=== PATIENT | female | born 1950 | race Caucasian/White ===

== ENCOUNTER 2021-12-22 14:57 | Inpatient (IN) | payer MEDICARE, SELFPAY ==
[2021-12-22 16:00] VITALS: BP 119/82; PULSE 101; RESP 18; TEMP 36.3; O2SAT 99
--- NOTE | 2021-12-22 18:26 | PC.ADMIT ---
pt is a 71 y/o female admitted to the unit from [facility] w/ DSM 5 diagnosis of F25 other specified schizophrenia spectrum and other psychotic d/o, F60 paranoid personality d/o. Patient reports 1 psychiatric admission in the past w/ECT treatment. Pt arrived to unit by stretcher. Patient is alert and oriented x4 and signed a CV. pt has past medical history of GERD, arthritis, diverticulitis, HTN. per pt, she had presented to her c appt and then referred to [facility] ED right after. pt states I was feeling really sad and just wanted to end it all. I wasn't planning on killing myself. patient's vital signs upon admission T97.3, HR101, Bp 119/82, RR18, O2 sat99% room air. Patient is ambulatory, verbal. pt has lacerations to bilateral arm (pt reports left arm laceration was due to an accident she endured while cutting a zip-tie).
[2021-12-22 19:12] VITALS: BMI 29.9
[2021-12-22 21:45] VITALS: BP 138/63; PULSE 100; RESP 18; TEMP 36.6; O2SAT 97
[2021-12-22] MEDS: Acetaminophen 325 MG TABLET 650 MG PO (22:48)
[2021-12-22] MEDS: traZODone HCL 50 MG TABLET PO ×2 (22:49→23:53)
[2021-12-22] MEDS: hydrOXYzine HCL 25 MG TABLET PO (22:50)
[2021-12-23 07:20] VITALS: BP 124/78; PULSE 98; RESP 18; TEMP 36.4; O2SAT 96
[2021-12-23 08:04] LABS: Estimated Average Glucose 120 mg/dL; Hemoglobin A1c % 5.8 %
[2021-12-23 08:09] LABS: Alanine Aminotransferase 17 U/L (0-31); Albumin Level 4.1 g/dL (3.5-5.0); Alkaline Phosphatase 78 U/L (39-117); Anion Gap 12 (12-20); Aspartate Amino Transferase 22 U/L (5-31); Bilirubin Total 0.7 mg/dL (0.0-1.0); Blood Urea Nitrogen 16 mg/dL (9-16); Calcium 9.5 mg/dL (8.4-10.2); Carbon Dioxide 32 mmol/L (22-29); Chloride 101 mmol/L (96-108); Cholesterol 201 mg/dL; Creatinine Clr Calc Pharmacy 64.1; Estimated Glomerular Filt Rate > 60; Glucose Fasting 102 mg/dL (60-99); HDL Cholesterol 45 mg/dL; LDL Cholesterol Calculated 124 mg/dl; Potassium 3.3 mmol/L (3.3-5.1); Sodium 142 mmol/L (135-145); Total Protein 7.2 g/dL (6.5-8.0); Triglycerides 163 mg/dL
[2021-12-23 08:29] LABS: Thyroid Stimulating Hormone 0.43 uIU/mL (0.32-4.0)
[2021-12-23 08:48] LABS: Folate 9.1 ng/mL (> or = 4.0); Vitamin B12 217 pg/mL (200-900)
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
[2021-12-23] MEDS: Omeprazole 20 MG CAPSULE.DR PO (14:15)
[2021-12-23] MEDS: Loperamide HCl 2 MG CAPSULE PO (14:15)
--- NOTE | 2021-12-23 16:04 | HO.PM.IMCN ---
History of Present Illness Data of Consult Service Date: 12/23/21 Primary Care Provider: Alvin Lee MD HPI Reason for consult: medical evaluation 71 year female with HTN, Major depression who is presently admitted to inpatient Psych unit for suicide attempt. She reportedly was at PCP's parking lot and cut her wrist and was brought in under section 12. She reports no acute medical issues at this time. She has no chest pain, no dyspnea with exertion, no leg edema Review of Systems Review of Systems: Gen: no fever Resp: no sob, no cough CV: no chest, no BALDERAS, no leg edema GI: No n/v, no abd pain Neuro: No confusion Yes all other systems are reviewed and are negative [facility] Medical History (Updated 12/23/21 @ 16:33 by Brandan Johnson MD) Diverticular disease HTN (hypertension) MDD (major depressive disorder), recurrent episode, moderate Family History (Updated 12/23/21 @ 16:32 by Brandan Johnson MD) Father CAD (coronary artery disease) Mother Alzheimer disease Social History Household Members: None Housing: Apartment Do you presently have visiting nurse or other home services: No Patient Tobacco Use Status: Former Tobacco user Smoked in Last 30 Days: No e-Cigarette/Vaping Use: Never Used Patient Interested in Nicotine Replacement: No (former smoker. 40 years ago) Patient Given Instructions on How to Stop Smoking: No (former smoker. 40 years ago) Second Hand Smoke Exposure: No Use of substances other than those prescribed or required for medical reasons: No Currently Displaying Signs/Symptoms of Drug Intoxication Withdrawal: No Have you been hit, kicked, punched, or otherwise hurt by someone within the past year? If so, by whom?: No Do you feel safe in your current relationship?: No Current Relationship Is there a partner from a previous relationship who is making you feel unsafe now?: No Are you made to feel afraid or neglected: No Spiritual Healthcare Practices: no Advance Directives: No Advance Directives Information Provided: No Do you have thoughts of harming others: None Do you have a plan to hurt others: No Plan Recently lost weight without trying: No Eating poorly because of decreased appetite: No Nutrition Risks: No Nutritional Risk Patient : No : No Poor oral hygiene: No service: No Sexual orientation: Straight/Heterosexual Meds Allergies Allergy/AdvReac Type Severity Reaction Status Date / Time codeine Allergy Unknown Unknown Verified 12/22/21 15:45 fentanyl Allergy Unknown Unknown Verified 12/22/21 15:45 prochlorperazine Allergy Unknown Unknown Verified 12/22/21 15:45 [From Compazine] Sulfa (Sulfonamide Allergy Unknown Unknown Verified 12/22/21 15:45 Antibiotics) ziprasidone [From Geodon] Allergy Unknown Unknown Verified 12/22/21 15:45 Active Medications: Current Medications Acetaminophen (Acetaminophen 325 Mg Tablet) 650 mg PO Q6H PRN PRN Reason: Headache/Pain Mild Scale (1-3) Last Admin: 12/22/21 22:48 Dose: 650 mg Documented by: Al Hydroxide/Mg Hydroxide (Magnesium Hydrox/Alum Hydrox 30 Ml Oral.Susp) 30 ml PO Q6H PRN PRN Reason: Heartburn/Nausea Hydroxyzine HCl (Hydroxyzine Hcl 25 Mg Tablet) 25 mg PO BEDTIME PRN PRN Reason: Anxiety Last Admin: 12/22/21 22:50 Dose: 25 mg Documented by: Loperamide HCl (Loperamide Hcl 2 Mg Capsule) 2 mg PO Q4H PRN PRN Reason: Loose Stool Last Admin: 12/23/21 14:15 Dose: 2 mg Documented by: Magnesium Hydroxide (Milk Of Magnesia 30 Ml Oral.Susp) 30 ml PO DAILY PRN PRN Reason: Constipation Omeprazole (Omeprazole 20 Mg Capsule.Dr) 20 mg PO DAILY@0630 [facility]IX Last Admin: 12/23/21 14:15 Dose: 20 mg Documented by: Quetiapine Fumarate (Quetiapine Fumarate 300 Mg Tablet) 300 mg PO BEDTIME [facility] Trazodone HCl (Trazodone Hcl 50 Mg Tablet) 50 mg PO BEDTIME PRN PRN Reason: Insomnia Last Admin: 12/22/21 23:53 Dose: 50 mg Documented by: Home Medications Medication Instructions Recorded Confirmed Last Taken Type Prilosec 12/23/21 Unknown History chlorthalidone 25 mg tablet 25 mg PO DAILY 12/23/21 Unknown History clonazepam 0.5 mg tablet (Klonopin) 0.5 mg PO DAILY 12/23/21 Unknown History gabapentin 600 mg tablet 600 mg PO BEDTIME 12/23/21 Unknown History metoprolol succinate 12/23/21 Unknown History quetiapine 300 mg tablet (Seroquel) 300 mg PO DAILY 12/23/21 Unknown History tranylcypromine 10 mg tablet 10 mg PO TID 12/23/21 Unknown History (Luis) Physical Exam Vital Signs and Narrative: Vital Signs: Last Vital Signs Temp 97.6 F 12/23/21 07:20 Pulse 98 12/23/21 07:20 Resp 18 12/23/21 07:20 BP 124/78 12/23/21 07:20 Pulse Ox 96 12/23/21 07:20 BMI result Body Mass Index 29.9 Const: Other: Constitutional: Alert, in no distress, Mental Status: Oriented to person, place and time. Eyes: Pupils are equal, round and reactive to light. Ear, Nose and Throat: Oropharynx clear, mucous membranes moist. Ears and nose without eformities. Trachea midline. Respiratory: Clear to auscultation. No wheezing, rales or rhonchi. Cardiovascular: S1 S2 regular. No murmurs, rubs or gallops. Gastrointestinal: Abdomen soft, non-tender, non-distended. Normal bowel sounds.? Neurologic: Cranial nerves II-XII grossly intact. No focal neurological deficits. Moves all extremities spontaneously.? Skin: No rashes or lesions.? Musculoskeletal: No cyanosis or clubbing. Psychiatric: Normal mood and affect? Results Labs CBC and Chem 7: 12/23/21 07:36 Labs: Laboratory Results - last 24 hr 12/23/21 12/23/21 12/23/21 07:36 07:36 07:36 Anion Gap 12 Estim Creat Clear Calc 64.1 Estimated GFR > 60 Fasting Glucose 102 H Estimat Average Glucose 120 Hemoglobin A1c % 5.8 Calcium 9.5 Total Bilirubin 0.7 AST 22 ALT 17 Alkaline Phosphatase 78 Total Protein 7.2 Albumin 4.1 Triglycerides 163 Cholesterol 201 LDL Cholesterol, Calc 124 HDL Cholesterol 45 Vitamin B12 217 Folate 9.1 TSH 0.43 Assessment and Plan (1) HTN (hypertension): Status: Acute Plan 71/F with HTN, major depression here with sucide gesture, cutting wrist. MDD--continue presently psychiatric care HTN--She's supposed to be on metoprolol and Chlorthalidone, med rec not done. BP has been normal so I suggest watching. Please ask Pharmacy to complete med rec Some abdominal discomfort--she states that this has been ongoing for weeks and had work up with abdominal CT at [facility] and told to have diverticular disease, has no fever and no tenderness and if c/o pain, consider repeating CT If ECT is indicated, would suggest getting ECG routinely then proceed unless ECG grossly abnormal.
[2021-12-23] MEDS: Acetaminophen 325 MG TABLET 650 MG PO (16:30)
[2021-12-23] MEDS: Loperamide HCl 2 MG CAPSULE 4 MG PO (16:59)
[2021-12-23 18:00] VITALS: BP 144/65; PULSE 106; RESP 16; TEMP 36.2; O2SAT 98
[2021-12-23] MEDS: traZODone HCL 50 MG TABLET PO (22:11)
[2021-12-23] MEDS: Gabapentin 600 MG TABLET PO (22:33)
[2021-12-23] MEDS: QUEtiapine Fumarate 300 MG TABLET PO (22:34)
[2021-12-23] MEDS: Zolpidem Tartrate 5 MG TABLET PO (22:55)
--- NOTE | 2021-12-24 00:46 | PC.NURSE ---
pt has c/o of insomnia despite gabapentin,seroquel and trazadone administration. dr gutiérrez contacted about pts insomnia will give ambien 5 mg po x1.
[2021-12-24 06:00] VITALS: BP 113/52; PULSE 98; TEMP 36.4; O2SAT 97
--- NOTE | 2021-12-24 08:56 | P.PNPSI_ITS ---
Subjective Subjective Date of Service: 12/24/21 Reason For Visit: psychosis Subjective Notes: Conditional Voluntary Interim History: The nursing staff reported the patient has a poor night, she could not sleep very well with all the medications that she has such as Gamma painting, Seroquel and others. Last night we added Ambien 5 mg p.o. q.h.s. with limited impr ovement. She stated that Klonopin used to help her. We review her list of medications and at this moment she is not on an antidepressant. She tried to kill herself a few days ago we discussed risks and benefits and she agreed to start Remeron as an antidepressant and a medication for sleep. Mental Status Exam Mental Status Exam Patient Appearance: Appropriate Patient Orientation: Person Level of Consciousness: Awake Patient Behavior: Cooperative Mood Description: Withdrawn Affect Description: Constricted Ability to Follow Directions: Fair Speech Pattern: Clear Hallucinations: None Thought Process: Distracted Thought Content: positive for Circumstantial and positive for Poverty of Content Judgement: Fair Diagnostics Vital Signs (24Hr): Vital Signs - 24 hr 12/23/21 18:00 Temperature 97.1 F Pulse Rate 106 H Respiratory Rate 16 Blood Pressure 144/65 H Pulse Oximetry 98 BMI result Body Mass Index 29.9 Labs Results: 12/23/21 07:36 Labs: Laboratory Results - last 48 hr 12/23/21 12/23/21 12/23/21 07:36 07:36 07:36 Sodium 142 Potassium 3.3 Chloride 101 Carbon Dioxide 32 H Anion Gap 12 BUN 16 Creatinine 0.77 Estim Creat Clear Calc 64.1 Estimated GFR > 60 Fasting Glucose 102 H Estimat Average Glucose 120 Hemoglobin A1c % 5.8 Calcium 9.5 Total Bilirubin 0.7 AST 22 ALT 17 Alkaline Phosphatase 78 Total Protein 7.2 Albumin 4.1 Triglycerides 163 Cholesterol 201 LDL Cholesterol, Calc 124 HDL Cholesterol 45 Vitamin B12 217 Folate 9.1 TSH 0.43 Medications Medications Current Medications Acetaminophen (Acetaminophen 325 Mg Tablet) 650 mg PO Q6H PRN PRN Reason: Headache/Pain Mild Scale (1-3) Last Admin: 12/23/21 16:30 Dose: 650 mg Documented by: Al Hydroxide/Mg Hydroxide (Magnesium Hydrox/Alum Hydrox 30 Ml Oral.Susp) 30 ml PO Q6H PRN PRN Reason: Heartburn/Nausea Gabapentin (Gabapentin 600 Mg Tablet) 600 mg PO BEDTIME [facility] Last Admin: 12/23/21 22:33 Dose: 600 mg Documented by: Hydroxyzine HCl (Hydroxyzine Hcl 25 Mg Tablet) 25 mg PO BEDTIME PRN PRN Reason: Anxiety Last Admin: 12/22/21 22:50 Dose: 25 mg Documented by: Loperamide HCl (Loperamide Hcl 2 Mg Capsule) 4 mg PO Q4H PRN PRN Reason: Diarrhea Last Admin: 12/23/21 16:59 Dose: 4 mg Documented by: Magnesium Hydroxide (Milk Of Magnesia 30 Ml Oral.Susp) 30 ml PO DAILY PRN PRN Reason: Constipation Mirtazapine (Mirtazapine 15 Mg Tablet) 15 mg PO BEDTIME [facility] Omeprazole (Omeprazole 20 Mg Capsule.Dr) 20 mg PO DAILY@0630 FELIX Last Admin: 12/23/21 14:15 Dose: 20 mg Documented by: Quetiapine Fumarate (Quetiapine Fumarate 300 Mg Tablet) 300 mg PO BEDTIME [facility] Last Admin: 12/23/21 22:34 Dose: 300 mg Documented by: Trazodone HCl (Trazodone Hcl 50 Mg Tablet) 50 mg PO BEDTIME PRN PRN Reason: Insomnia Last Admin: 12/23/21 22:11 Dose: 50 mg Documented by: Allergies Allergies Allergy/AdvReac Type Severity Reaction Status Date / Time codeine Allergy Unknown Unknown Verified 12/22/21 15:45 fentanyl Allergy Unknown Unknown Verified 12/22/21 15:45 prochlorperazine Allergy Unknown Unknown Verified 12/22/21 15:45 [From Compazine] Sulfa (Sulfonamide Allergy Unknown Unknown Verified 12/22/21 15:45 Antibiotics) ziprasidone [From Geodon] Allergy Unknown Unknown Verified 12/22/21 15:45 Assessment & Plan Assessment & Plan (1) HTN (hypertension): Status: Acute Code(s): I10 - Essential (primary) hypertension Plan 71/F with HTN, major depression here with sucide gesture, cutting wrist. MDD--continue presently psychiatric care HTN--She's supposed to be on metoprolol and Chlorthalidone, med rec not done. BP has been normal so I suggest watching. Please ask Pharmacy to complete med rec Some abdominal discomfort--she states that this has been ongoing for weeks and had work up with abdominal CT at [facility] and told to have diverticular disease, has no fever and no tenderness and if c/o pain, consider repeating CT If ECT is indicated, would suggest getting ECG routinely then proceed unless ECG grossly abnormal. I spent ___20___ minutes with the patient and/or on the patient floor today, greater than?50% of which was spent counseling/coordinating care. Reason for contiued inpatient stay Substantial Risk for: inability to function, rapid decompensation and med/psych decompensation
[2021-12-24 20:12] VITALS: BP 120/84; PULSE 103; RESP 18; TEMP 36.4; O2SAT 98
[2021-12-24] MEDS: Gabapentin 600 MG TABLET PO (20:20)
[2021-12-24] MEDS: Mirtazapine 15 MG TABLET PO (20:20)
[2021-12-24] MEDS: QUEtiapine Fumarate 300 MG TABLET PO (20:20)
[2021-12-24] MEDS: hydrOXYzine HCL 25 MG TABLET PO (20:44)
[2021-12-24] MEDS: traZODone HCL 50 MG TABLET PO ×2 (20:44→21:59)
[2021-12-25] MEDS: Acetaminophen 325 MG TABLET 650 MG PO (05:49)
[2021-12-25] MEDS: Omeprazole 20 MG CAPSULE.DR PO (05:50)
[2021-12-25 06:00] VITALS: BP 135/63; PULSE 106; TEMP 36.5; O2SAT 96
--- NOTE | 2021-12-25 09:28 | HO.PSYCHPN ---
Subjective Subjective Date of Service: 12/25/21 Reason For Visit: psychosis Subjective Notes: Conditional Voluntary Interim History: The nursing staff reported the patient has been isolative, spending most of her time in her room. She needed p.r.n. trazodone for sleep. She denies over-sedation with the new dose of Remeron at night. On interview, the patient stated that she was suicidal ideation and she broke a toothbrush and tried to cut her wrist. She was placed on 1:1 for safety. Mental Status Exam Mental Status Exam Patient Appearance: Well Grooomed Patient Orientation: Person Level of Consciousness: Awake Patient Behavior: Cooperative Mood Description: Depressed Affect Description: Constricted Ability to Follow Directions: Good Speech Pattern: Clear Memory Description: Intact Hallucinations: None Thought Process: Evasive Thought Content: positive for [place] Judgement: Fair Diagnostics Vital Signs (24Hr): Vital Signs - 24 hr 12/24/21 20:12 Temperature 97.6 F Pulse Rate 103 H Respiratory Rate 18 Blood Pressure 120/84 Pulse Oximetry 98 BMI result Body Mass Index 29.9 Labs Results: 12/23/21 07:36 Medications Medications Current Medications Acetaminophen (Acetaminophen 325 Mg Tablet) 650 mg PO Q6H PRN PRN Reason: Headache/Pain Mild Scale (1-3) Last Admin: 12/25/21 05:49 Dose: 650 mg Documented by: Al Hydroxide/Mg Hydroxide (Magnesium Hydrox/Alum Hydrox 30 Ml Oral.Susp) 30 ml PO Q6H PRN PRN Reason: Heartburn/Nausea Gabapentin (Gabapentin 600 Mg Tablet) 600 mg PO BEDTIME [facility] Last Admin: 12/24/21 20:20 Dose: 600 mg Documented by: Hydroxyzine HCl (Hydroxyzine Hcl 25 Mg Tablet) 25 mg PO BEDTIME PRN PRN Reason: Anxiety Last Admin: 12/24/21 20:44 Dose: 25 mg Documented by: Loperamide HCl (Loperamide Hcl 2 Mg Capsule) 4 mg PO Q4H PRN PRN Reason: Diarrhea Last Admin: 12/23/21 16:59 Dose: 4 mg Documented by: Magnesium Hydroxide (Milk Of Magnesia 30 Ml Oral.Susp) 30 ml PO DAILY PRN PRN Reason: Constipation Mirtazapine (Mirtazapine 15 Mg Tablet) 15 mg PO BEDTIME [facility] Last Admin: 12/24/21 20:20 Dose: 15 mg Documented by: Omeprazole (Omeprazole 20 Mg Capsule.) 20 mg PO DAILY@0630 [facility] Last Admin: 12/25/21 05:50 Dose: 20 mg Documented by: Quetiapine Fumarate (Quetiapine Fumarate 300 Mg Tablet) 300 mg PO BEDTIME [facility] Last Admin: 12/24/21 20:20 Dose: 300 mg Documented by: Trazodone HCl (Trazodone Hcl 50 Mg Tablet) 50 mg PO BEDTIME PRN PRN Reason: Insomnia Last Admin: 12/24/21 21:59 Dose: 50 mg Documented by: Allergies Allergies Allergy/AdvReac Type Severity Reaction Status Date / Time codeine Allergy Unknown Unknown Verified 12/22/21 15:45 fentanyl Allergy Unknown Unknown Verified 12/22/21 15:45 prochlorperazine Allergy Unknown Unknown Verified 12/22/21 15:45 [From Compazine] Sulfa (Sulfonamide Allergy Unknown Unknown Verified 12/22/21 15:45 Antibiotics) ziprasidone [From Geodon] Allergy Unknown Unknown Verified 12/22/21 15:45 Assessment & Plan Assessment & Plan (1) HTN (hypertension): Status: Acute Code(s): I10 - Essential (primary) hypertension Plan 71/F with HTN, major depression here with sucide gesture, cutting wrist. MDD--continue presently psychiatric care HTN--She's supposed to be on metoprolol and Chlorthalidone, med rec not done. BP has been normal so I suggest watching. Please ask Pharmacy to complete med rec Some abdominal discomfort--she states that this has been ongoing for weeks and had work up with abdominal CT at [facility] and told to have diverticular disease, has no fever and no tenderness and if c/o pain, consider repeating CT If ECT is indicated, would suggest getting ECG routinely then proceed unless ECG grossly abnormal. PLAN 1. Increase Remeron up to 30 mg po qhs to target insomnia and depression. 2. 1:1 for safety after suicide gesture. 3. Gather collateral information. I spent ___20___ minutes with the patient and/or on the patient floor today, greater than?50% of which was spent counseling/coordinating care. Reason for contiued inpatient stay Substantial Risk for: inability to function, rapid decompensation and med/psych decompensation
--- NOTE | 2021-12-25 13:33 | PC.NURSE ---
Home Appliance Technician, Perla, called this designer/writer to pt's room stating that pt was bleeding from her wrist. Observed pt to be bleeding from her left wrist from superficial cut. Pt reports she broke a toothbrush and cut my wrist . The MD informed and ordered to pt to be 1:1. The pt contracted for safety at this time, stated It just got to be too much, I just couldn't take it .
[2021-12-25 18:00] VITALS: BP 159/62; PULSE 120; RESP 20; TEMP 36; O2SAT 97
[2021-12-25] MEDS: Loperamide HCl 2 MG CAPSULE 4 MG PO (18:10)
[2021-12-25] MEDS: Mirtazapine 30 MG TABLET PO (20:32)
[2021-12-25] MEDS: Gabapentin 600 MG TABLET PO (20:32)
[2021-12-25] MEDS: QUEtiapine Fumarate 300 MG TABLET PO (20:32)
[2021-12-25] MEDS: Metoprolol Tartrate 50 MG TABLET PO (21:56)
[2021-12-25] MEDS: traZODone HCL 50 MG TABLET PO (21:59)
[2021-12-25 22:02] VITALS: BP 152/62; PULSE 118
[2021-12-26] MEDS: traZODone HCL 50 MG TABLET PO (00:48)
[2021-12-26] MEDS: hydrOXYzine HCL 25 MG TABLET PO (00:48)
--- NOTE | 2021-12-26 05:32 | PC.NURSE ---
Patient took a shower. Left wrist dressing changed to cover one inch horizontal cuts. No bleeding and radial pulse normal on palpation.
[2021-12-26 06:15] VITALS: PULSE 82
[2021-12-26 09:16] VITALS: BP 115/53; PULSE 95; RESP 16; TEMP 36.3; O2SAT 95
[2021-12-26] MEDS: Metoprolol Tartrate 50 MG TABLET PO (09:42)
[2021-12-26 12:35] VITALS: BP 127/62; PULSE 88; RESP 16; O2SAT 95
[2021-12-26 12:41] VITALS: BP 125/61; PULSE 86; RESP 16; TEMP 36.4; O2SAT 97
[2021-12-26 12:45] VITALS: BP 131/59; PULSE 96; RESP 17; O2SAT 94
--- NOTE | 2021-12-26 13:46 | P.PNPSI_ITS ---
Subjective Subjective Date of Service: 12/26/21 Reason For Visit: psychosis Subjective Notes: Conditional Voluntary Interim History: Pt continues on 1:1 for safety. Pt reports it was impulsive act- the one of breaking tooth brush and cut wrist superficially. She is laughing as she tells this fiction writer what happened. Pt denies suicidal ideation. She reports it was s tupid which she said when we first met about cut on wrist that brought her to hospital. Pt reports I just want to be here for as long as I need to, I tell you when I am ready. Pt reports that maybe she was paranoid- but pt has not appear internally preoccupied. When asked about reaction that she was expecting from others after self harm, pt states I wasn't thinking about that. Pt reports sleeping and eating well. She denied SI/HI. Medication Compliance: Yes Side effects from medications: No Review of Systems Review of Systems Gen: no fever Resp: no sob, no cough CV: no chest, no BALDERAS, no leg edema GI: No n/v, no abd pain Neuro: No confusion Yes all other systems are reviewed and are negative Constitutional: Denies weight gain and Denies weight loss Cardiovascular: Denies irregular heart rhythm and Denies dyspnea Respiratory: Denies dyspnea Gastrointestinal: Reports dyspepsia and Reports diarrhea Mental Status Exam Mental Status Exam Narrative: Appearance: casually groomed, fair hygiene in NAD Behavior:cooperative psychomotor:no agitation or retardation noted Speech:clear, normal rate/rhythm/volume, spontaneous Thought process:tangential Thought content:no signs of psychosis, feeling lonely, overwhelmed Mood: overwhelmed Affect: congruent, anxious SI:none HI:none VH/AH:none Delusions:no overt delusional content reported Insight/judgment:fair x 2. Memory/cog: alert, oriented x 3. grossly intact to conversational testing. Diagnostics Vital Signs (24Hr): Vital Signs - 24 hr 12/25/21 18:00 12/25/21 22:02 12/26/21 06:15 Temperature 96.8 F Pulse Rate 120 H 118 H 82 Respiratory Rate 20 Blood Pressure 159/62 H 152/62 H Pulse Oximetry 97 12/26/21 09:16 12/26/21 12:35 12/26/21 12:41 Temperature 97.3 F 97.5 F Pulse Rate 95 88 86 Respiratory Rate 16 16 16 Blood Pressure 115/53 L 127/62 125/61 Pulse Oximetry 95 95 97 12/26/21 12:45 Temperature Pulse Rate 96 Respiratory Rate 17 Blood Pressure 131/59 L Pulse Oximetry 94 BMI result Body Mass Index 29.9 Labs Results: 12/23/21 07:36 Medications Medications Current Medications Acetaminophen (Acetaminophen 325 Mg Tablet) 650 mg PO Q6H PRN PRN Reason: Headache/Pain Mild Scale (1-3) Last Admin: 12/25/21 05:49 Dose: 650 mg Documented by: Al Hydroxide/Mg Hydroxide (Magnesium Hydrox/Alum Hydrox 30 Ml Oral.Susp) 30 ml PO Q6H PRN PRN Reason: Heartburn/Nausea Gabapentin (Gabapentin 600 Mg Tablet) 600 mg PO BEDTIME FELIX Last Admin: 12/25/21 20:32 Dose: 600 mg Documented by: Hydroxyzine HCl (Hydroxyzine Hcl 25 Mg Tablet) 25 mg PO BEDTIME PRN PRN Reason: Anxiety Last Admin: 12/26/21 00:48 Dose: 25 mg Documented by: Loperamide HCl (Loperamide Hcl 2 Mg Capsule) 4 mg PO Q4H PRN PRN Reason: Diarrhea Last Admin: 12/25/21 18:10 Dose: 4 mg Documented by: Magnesium Hydroxide (Milk Of Magnesia 30 Ml Oral.Susp) 30 ml PO DAILY PRN PRN Reason: Constipation Metoprolol Tartrate (Metoprolol Tartrate 50 Mg Tablet) 50 mg PO DAILY [facility]; Protocol Last Admin: 12/26/21 09:42 Dose: 50 mg Documented by: Mirtazapine (Mirtazapine 30 Mg Tablet) 30 mg PO BEDTIME [facility] Last Admin: 12/25/21 20:32 Dose: 30 mg Documented by: Omeprazole (Omeprazole 20 Mg Capsule.Dr) 20 mg PO DAILY@0630 [facility] Last Admin: 12/26/21 06:02 Dose: Not Given Documented by: Quetiapine Fumarate (Quetiapine Fumarate 300 Mg Tablet) 300 mg PO BEDTIME [facility] Last Admin: 12/25/21 20:32 Dose: 300 mg Documented by: Trazodone HCl (Trazodone Hcl 50 Mg Tablet) 50 mg PO BEDTIME PRN PRN Reason: Insomnia Last Admin: 12/26/21 00:48 Dose: 50 mg Documented by: Allergies Allergies Allergy/AdvReac Type Severity Reaction Status Date / Time codeine Allergy Unknown Unknown Verified 12/22/21 15:45 fentanyl Allergy Unknown Unknown Verified 12/22/21 15:45 prochlorperazine Allergy Unknown Unknown Verified 12/22/21 15:45 [From Compazine] Sulfa (Sulfonamide Allergy Unknown Unknown Verified 12/22/21 15:45 Antibiotics) ziprasidone [From Geodon] Allergy Unknown Unknown Verified 12/22/21 15:45 Assessment & Plan Assessment & Plan (1) MDD (major depressive disorder), recurrent episode, moderate: Status: Acute Code(s): F33.1 - Major depressive disorder, recurrent, moderate Plan 71/F with HTN, major depression here with sucide gesture, cutting wrist. MDD--continue presently psychiatric care PLAN 1. Increase Remeron up to 30 mg po qhs to target insomnia and depression. 2. 1:1 for safety after suicide gesture- continue for now 3. Gather collateral information. 4. Aftercare planning. I spent ___25___ minutes with the patient and/or on the patient floor today, greater than?50% of which was spent counseling/coordinating care. Patient educated on: diagnosis Informed Consent: understands Reason for contiued inpatient stay Substantial Risk for: harm to self
[2021-12-26 18:00] VITALS: BP 140/69; PULSE 102; RESP 18; TEMP 37; O2SAT 98
[2021-12-26] MEDS: Mirtazapine 30 MG TABLET PO (22:03)
[2021-12-26] MEDS: QUEtiapine Fumarate 300 MG TABLET PO (22:03)
[2021-12-27] MEDS: traZODone HCL 50 MG TABLET PO (00:27)
[2021-12-27] MEDS: hydrOXYzine HCL 25 MG TABLET PO (00:27)
[2021-12-27 07:15] VITALS: BP 158/82; PULSE 115; RESP 20; TEMP 36.3; O2SAT 97
--- NOTE | 2021-12-27 07:40 | P.PNPSI_ITS ---
Subjective Subjective Date of Service: 12/27/21 Reason For Visit: psychosis Subjective Notes: Conditional Voluntary Interim History: Pt continues on 1:1 for safety. Pt initially declined to speak with this casualty underwriter reporting she is overwhelmed and tired. She had asked RN in morning that she wants ECT. She later did agree to talk with this casualty underwriter, stating she had ECT several years ago here and in [place]. Pt denies SI/HI. She reports attempt on unit was stupid but still can't contract for safety. Pt reports several somatic concerns like dizziness, unsteady gait but seen walking with steady gait and no signs of orthostatic hton. Pt states people don't believe how sick I am. Medication Compliance: Yes Side effects from medications: No Attending Groups: No Review of Systems Review of Systems Gen: no fever Resp: no sob, no cough CV: no chest, no BALDERAS, no leg edema GI: No n/v, no abd pain Neuro: No confusion Yes all other systems are reviewed and are negative Constitutional: Denies weight gain and Denies weight loss Cardiovascular: Denies irregular heart rhythm and Denies dyspnea Respiratory: Denies dyspnea Gastrointestinal: Reports dyspepsia and Reports diarrhea Mental Status Exam Mental Status Exam Narrative: Appearance: casually groomed, fair hygiene in NAD Behavior:cooperative psychomotor:no agitation or retardation noted Speech:clear, normal rate/rhythm/volume, spontaneous Thought process:tangential Thought content:no signs of psychosis, feeling lonely, overwhelmed Mood: overwhelmed Affect: congruent, anxious SI:none HI:none VH/AH:none Delusions:no overt delusional content reported Insight/judgment:fair x 2. Memory/cog: alert, oriented x 3. grossly intact to conversational testing. Diagnostics Vital Signs (24Hr): Vital Signs - 24 hr 12/27/21 20:33 Temperature 98.8 F Pulse Rate 98 Respiratory Rate 16 Blood Pressure 132/59 L Pulse Oximetry 97 BMI result Body Mass Index 29.9 Labs Results: 12/23/21 07:36 Medications Medications Current Medications Acetaminophen (Acetaminophen 325 Mg Tablet) 650 mg PO Q6H PRN PRN Reason: Headache/Pain Mild Scale (1-3) Last Admin: 12/25/21 05:49 Dose: 650 mg Documented by: Al Hydroxide/Mg Hydroxide (Magnesium Hydrox/Alum Hydrox 30 Ml Oral.Susp) 30 ml PO Q6H PRN PRN Reason: Heartburn/Nausea Gabapentin (Gabapentin 600 Mg Tablet) 600 mg PO BEDTIME FELIX Last Admin: 12/27/21 20:10 Dose: 600 mg Documented by: Hydroxyzine HCl (Hydroxyzine Hcl 25 Mg Tablet) 25 mg PO BEDTIME PRN PRN Reason: Anxiety Last Admin: 12/27/21 00:27 Dose: 25 mg Documented by: Loperamide HCl (Loperamide Hcl 2 Mg Capsule) 4 mg PO Q4H PRN PRN Reason: Diarrhea Last Admin: 12/25/21 18:10 Dose: 4 mg Documented by: Magnesium Hydroxide (Milk Of Magnesia 30 Ml Oral.Susp) 30 ml PO DAILY PRN PRN Reason: Constipation Metoprolol Tartrate (Metoprolol Tartrate 50 Mg Tablet) 50 mg PO DAILY [facility]; Protocol Last Admin: 12/27/21 09:34 Dose: 50 mg Documented by: Mirtazapine (Mirtazapine 30 Mg Tablet) 30 mg PO BEDTIME [facility] Last Admin: 12/27/21 20:10 Dose: 30 mg Documented by: Omeprazole (Omeprazole 20 Mg Capsule.Dr) 20 mg PO DAILY@0630 [facility] Last Admin: 12/28/21 06:22 Dose: Not Given Documented by: Quetiapine Fumarate (Quetiapine Fumarate 300 Mg Tablet) 300 mg PO BEDTIME [facility] Last Admin: 12/27/21 20:10 Dose: 300 mg Documented by: Trazodone HCl (Trazodone Hcl 50 Mg Tablet) 50 mg PO BEDTIME PRN PRN Reason: Insomnia Last Admin: 12/27/21 00:27 Dose: 50 mg Documented by: Allergies Allergies Allergy/AdvReac Type Severity Reaction Status Date / Time codeine Allergy Unknown Unknown Verified 12/22/21 15:45 fentanyl Allergy Unknown Unknown Verified 12/22/21 15:45 prochlorperazine Allergy Unknown Unknown Verified 12/22/21 15:45 [From Compazine] Sulfa (Sulfonamide Allergy Unknown Unknown Verified 12/22/21 15:45 Antibiotics) ziprasidone [From Geodon] Allergy Unknown Unknown Verified 12/22/21 15:45 Assessment & Plan Assessment & Plan (1) MDD (major depressive disorder), recurrent episode, moderate: Status: Acute Code(s): F33.1 - Major depressive disorder, recurrent, moderate (2) Borderline personality disorder: Status: Acute Code(s): F60.3 - Borderline personality disorder Plan 71/F with HTN, major depression here with sucide gesture, cutting wrist. MDD--continue presently psychiatric care PLAN 1. Increase Remeron up to 30 mg po qhs to target insomnia and depression. 2. 1:1 for safety after suicide gesture- continue for now 3. Gather collateral information. 4. Aftercare planning. I spent minutes with the patient and/or on the patient floor today, greater than?50% of which was spent counseling/coordinating care. Reason for contiued inpatient stay Substantial Risk for: inability to function
[2021-12-27] MEDS: Metoprolol Tartrate 50 MG TABLET PO (09:34)
[2021-12-27] MEDS: QUEtiapine Fumarate 300 MG TABLET PO (20:10)
[2021-12-27] MEDS: Gabapentin 600 MG TABLET PO (20:10)
[2021-12-27] MEDS: Mirtazapine 30 MG TABLET PO (20:10)
[2021-12-27 20:33] VITALS: BP 132/59; PULSE 98; RESP 16; TEMP 37.1; O2SAT 97
[2021-12-28 06:00] VITALS: BP 123/64; PULSE 108; RESP 14; TEMP 36.4; O2SAT 98
[2021-12-28] MEDS: Omeprazole 20 MG CAPSULE.DR PO (08:33)
[2021-12-28] MEDS: Metoprolol Tartrate 50 MG TABLET PO (08:33)
--- NOTE | 2021-12-28 11:01 | P.PNPSI_ITS ---
Subjective Subjective Date of Service: 12/28/21 Reason For Visit: psychosis Subjective Notes: Conditional Voluntary Interim History: Pt continues on 1:1 for safety. Pt met with this advertising writer and MATTHEW Corrales. Pt reports she feels safe in the unit. She reports sleeping and eating well. She denies SI/HI. However, pt reports she does not feel ready to be discharged, that she she will determine when she is ready to leave. We discussed goals for this admission, including safety planning. We discussed that most coping skills to manage frustration, loneliness to prevent self harm are learned from outpatient intensive therapy. Pt reports medications are helpful. She denies side affects. No behavioral concerns. Medication Compliance: Yes Side effects from medications: No Review of Systems Review of Systems Gen: no fever Resp: no sob, no cough CV: no chest, no BALDERAS, no leg edema GI: No n/v, no abd pain Neuro: No confusion Yes all other systems are reviewed and are negative Constitutional: Denies weight gain and Denies weight loss Cardiovascular: Denies irregular heart rhythm and Denies dyspnea Respiratory: Denies dyspnea Gastrointestinal: Reports dyspepsia and Reports diarrhea Mental Status Exam Mental Status Exam Narrative: Appearance: casually groomed, fair hygiene in NAD Behavior:cooperative psychomotor:no agitation or retardation noted Speech:clear, normal rate/rhythm/volume, spontaneous Thought process:tangential Thought content:no signs of psychosis, feeling lonely, overwhelmed Mood: overwhelmed Affect: congruent, anxious SI:none HI:none VH/AH:none Delusions:no overt delusional content reported Insight/judgment:fair x 2. Memory/cog: alert, oriented x 3. grossly intact to conversational testing. Diagnostics Vital Signs (24Hr): Vital Signs - 24 hr 12/27/21 20:33 12/28/21 06:00 Temperature 98.8 F 97.6 F Pulse Rate 98 108 H Respiratory Rate 16 14 Blood Pressure 132/59 L 123/64 Pulse Oximetry 97 98 BMI result Body Mass Index 29.9 Labs Results: 12/23/21 07:36 Medications Medications Current Medications Acetaminophen (Acetaminophen 325 Mg Tablet) 650 mg PO Q6H PRN PRN Reason: Headache/Pain Mild Scale (1-3) Last Admin: 12/25/21 05:49 Dose: 650 mg Documented by: Al Hydroxide/Mg Hydroxide (Magnesium Hydrox/Alum Hydrox 30 Ml Oral.Susp) 30 ml PO Q6H PRN PRN Reason: Heartburn/Nausea Gabapentin (Gabapentin 600 Mg Tablet) 600 mg PO BEDTIME FELIX Last Admin: 12/27/21 20:10 Dose: 600 mg Documented by: Hydroxyzine HCl (Hydroxyzine Hcl 25 Mg Tablet) 25 mg PO BEDTIME PRN PRN Reason: Anxiety Last Admin: 12/27/21 00:27 Dose: 25 mg Documented by: Loperamide HCl (Loperamide Hcl 2 Mg Capsule) 4 mg PO Q4H PRN PRN Reason: Diarrhea Last Admin: 12/25/21 18:10 Dose: 4 mg Documented by: Magnesium Hydroxide (Milk Of Magnesia 30 Ml Oral.Susp) 30 ml PO DAILY PRN PRN Reason: Constipation Metoprolol Tartrate (Metoprolol Tartrate 50 Mg Tablet) 50 mg PO DAILY [facility]; Protocol Last Admin: 12/28/21 08:33 Dose: 50 mg Documented by: Mirtazapine (Mirtazapine 30 Mg Tablet) 30 mg PO BEDTIME [facility] Last Admin: 12/27/21 20:10 Dose: 30 mg Documented by: Omeprazole (Omeprazole 20 Mg Capsule.Dr) 20 mg PO DAILY@0630 [facility] Last Admin: 12/28/21 08:33 Dose: 20 mg Documented by: Quetiapine Fumarate (Quetiapine Fumarate 300 Mg Tablet) 300 mg PO BEDTIME [facility] Last Admin: 12/27/21 20:10 Dose: 300 mg Documented by: Trazodone HCl (Trazodone Hcl 50 Mg Tablet) 50 mg PO BEDTIME PRN PRN Reason: Insomnia Last Admin: 12/27/21 00:27 Dose: 50 mg Documented by: Allergies Allergies Allergy/AdvReac Type Severity Reaction Status Date / Time codeine Allergy Unknown Unknown Verified 12/22/21 15:45 fentanyl Allergy Unknown Unknown Verified 12/22/21 15:45 prochlorperazine Allergy Unknown Unknown Verified 12/22/21 15:45 [From Compazine] Sulfa (Sulfonamide Allergy Unknown Unknown Verified 12/22/21 15:45 Antibiotics) ziprasidone [From Geodon] Allergy Unknown Unknown Verified 12/22/21 15:45 Assessment & Plan Assessment & Plan (1) MDD (major depressive disorder), recurrent episode, moderate: Status: Acute Code(s): F33.1 - Major depressive disorder, recurrent, moderate (2) Borderline personality disorder: Status: Acute Code(s): F60.3 - Borderline personality disorder Plan 71/F with HTN, major depression here with sucide gesture, cutting wrist. MDD--continue presently psychiatric care PLAN 1. Increase Remeron up to 30 mg po qhs to target insomnia and depression. 2. 1:1 for safety after suicide gesture- continue for now 3. Gather collateral information. 4. Aftercare planning. I spent minutes with the patient and/or on the patient floor today, greater than?50% of which was spent counseling/coordinating care. Reason for contiued inpatient stay Substantial Risk for: harm to self
[2021-12-28] MEDS: QUEtiapine Fumarate 300 MG TABLET PO (20:17)
[2021-12-28] MEDS: Mirtazapine 30 MG TABLET PO (20:17)
[2021-12-28] MEDS: Gabapentin 600 MG TABLET PO (20:17)
[2021-12-28 21:12] VITALS: BP 141/62; PULSE 99; RESP 17; TEMP 36.5; O2SAT 97
[2021-12-29 06:00] VITALS: BP 136/57; PULSE 108; RESP 16; TEMP 36.8; O2SAT 98
[2021-12-29] MEDS: Omeprazole 20 MG CAPSULE.DR PO (06:43)
[2021-12-29 07:00] VITALS: BMI 28.5
[2021-12-29] MEDS: Metoprolol Tartrate 50 MG TABLET PO (08:44)
--- NOTE | 2021-12-29 12:30 | HO.PSYCHPN ---
Subjective Subjective Date of Service: 12/29/21 Reason For Visit: psychosis Subjective Notes: Conditional Voluntary Interim History: Pt continues on 1:1 for safety. Pt in room. She reports not feeling well physically in that she reports feeling dizzy when standing- BP wnl, no signs of orthostatic changes. Pt reports she can't go to groups because of this. Pt denies SI/HI, reports sleeping. however, pt declines discussing discharge plans as she states she is not ready and does not know when she will be ready. We discussed that most therapeutic interventions for her are outpatient as she will be able to build on chronic sense of loneliness, fear of rejection or abandonment. hospitalist consult for wound on left wrist that appears purulent ordered Medication Compliance: Yes Side effects from medications: No Review of Systems Review of Systems Gen: no fever Resp: no sob, no cough CV: no chest, no BALDERAS, no leg edema GI: No n/v, no abd pain Neuro: No confusion Yes all other systems are reviewed and are negative Constitutional: Denies weight gain and Denies weight loss Cardiovascular: Denies irregular heart rhythm and Denies dyspnea Respiratory: Denies dyspnea Gastrointestinal: Reports dyspepsia and Reports diarrhea Mental Status Exam Mental Status Exam Narrative: Appearance: casually groomed, fair hygiene in NAD Behavior:cooperative psychomotor:no agitation or retardation noted Speech:clear, normal rate/rhythm/volume, spontaneous Thought process:tangential Thought content:no signs of psychosis, feeling lonely, overwhelmed Mood: overwhelmed Affect: congruent, anxious SI:none HI:none VH/AH:none Delusions:no overt delusional content reported Insight/judgment:fair x 2. Memory/cog: alert, oriented x 3. grossly intact to conversational testing. Patient Appearance: Well Grooomed Patient Orientation: Person Level of Consciousness: Awake Patient Behavior: Cooperative Mood Description: Depressed Affect Description: Constricted Ability to Follow Directions: Good Speech Pattern: Clear Memory Description: Intact Diagnostics Vital Signs (24Hr): Vital Signs - 24 hr 12/28/21 21:12 Temperature 97.7 F Pulse Rate 99 Respiratory Rate 17 Blood Pressure 141/62 H Pulse Oximetry 97 BMI result Body Mass Index 29.9 Labs Results: 12/23/21 07:36 Medications Medications Current Medications Acetaminophen (Acetaminophen 325 Mg Tablet) 650 mg PO Q6H PRN PRN Reason: Headache/Pain Mild Scale (1-3) Last Admin: 12/25/21 05:49 Dose: 650 mg Documented by: Al Hydroxide/Mg Hydroxide (Magnesium Hydrox/Alum Hydrox 30 Ml Oral.Susp) 30 ml PO Q6H PRN PRN Reason: Heartburn/Nausea Gabapentin (Gabapentin 600 Mg Tablet) 600 mg PO BEDTIME FELIX Last Admin: 12/28/21 20:17 Dose: 600 mg Documented by: Hydroxyzine HCl (Hydroxyzine Hcl 25 Mg Tablet) 25 mg PO BEDTIME PRN PRN Reason: Anxiety Last Admin: 12/27/21 00:27 Dose: 25 mg Documented by: Loperamide HCl (Loperamide Hcl 2 Mg Capsule) 4 mg PO Q4H PRN PRN Reason: Diarrhea Last Admin: 12/29/21 13:04 Dose: 4 mg Documented by: Magnesium Hydroxide (Milk Of Magnesia 30 Ml Oral.Susp) 30 ml PO DAILY PRN PRN Reason: Constipation Metoprolol Tartrate (Metoprolol Tartrate 50 Mg Tablet) 50 mg PO DAILY [facility]; Protocol Last Admin: 12/29/21 08:44 Dose: 50 mg Documented by: Mirtazapine (Mirtazapine 30 Mg Tablet) 30 mg PO BEDTIME [facility] Last Admin: 12/28/21 20:17 Dose: 30 mg Documented by: Omeprazole (Omeprazole 20 Mg Capsule.Dr) 20 mg PO DAILY@0630 [facility] Last Admin: 12/29/21 06:43 Dose: 20 mg Documented by: Quetiapine Fumarate (Quetiapine Fumarate 300 Mg Tablet) 300 mg PO BEDTIME [facility] Last Admin: 12/28/21 20:17 Dose: 300 mg Documented by: Trazodone HCl (Trazodone Hcl 50 Mg Tablet) 50 mg PO BEDTIME PRN PRN Reason: Insomnia Last Admin: 12/27/21 00:27 Dose: 50 mg Documented by: Allergies Allergies Allergy/AdvReac Type Severity Reaction Status Date / Time codeine Allergy Unknown Unknown Verified 12/22/21 15:45 fentanyl Allergy Unknown Unknown Verified 12/22/21 15:45 prochlorperazine Allergy Unknown Unknown Verified 12/22/21 15:45 [From Compazine] Sulfa (Sulfonamide Allergy Unknown Unknown Verified 12/22/21 15:45 Antibiotics) ziprasidone [From Geodon] Allergy Unknown Unknown Verified 12/22/21 15:45 Assessment & Plan Assessment & Plan (1) MDD (major depressive disorder), recurrent episode, moderate: Status: Acute Code(s): F33.1 - Major depressive disorder, recurrent, moderate (2) Borderline personality disorder: Status: Acute Code(s): F60.3 - Borderline personality disorder Plan 71/F with HTN, major depression here with sucide gesture, cutting wrist. MDD--continue presently psychiatric care PLAN 1. Increase Remeron up to 30 mg po qhs to target insomnia and depression. 2. 1:1 for safety after suicide gesture- continue for now 3. Gather collateral information. 4. Aftercare planning. 12/29- no med changes. I spent minutes with the patient and/or on the patient floor today, greater than?50% of which was spent counseling/coordinating care. Reason for contiued inpatient stay Substantial Risk for: harm to self
[2021-12-29] MEDS: Loperamide HCl 2 MG CAPSULE 4 MG PO (13:04)
[2021-12-29] MEDS: QUEtiapine Fumarate 300 MG TABLET PO (20:40)
[2021-12-29] MEDS: Gabapentin 600 MG TABLET PO (20:40)
[2021-12-29] MEDS: Mirtazapine 30 MG TABLET PO (20:40)
[2021-12-29 21:07] VITALS: BP 138/74; PULSE 96; RESP 17; TEMP 36.6; O2SAT 100
[2021-12-30] MEDS: Omeprazole 20 MG CAPSULE.DR PO (06:38)
[2021-12-30 08:00] VITALS: BP 140/59; PULSE 104; RESP 15; TEMP 36.6; O2SAT 98
[2021-12-30] MEDS: Metoprolol Tartrate 50 MG TABLET PO (08:21)
[2021-12-30] MEDS: hydrOXYzine HCL 25 MG TABLET PO (08:21)
--- NOTE | 2021-12-30 13:39 | HO.PSYCHPN ---
Subjective Subjective Date of Service: 12/30/21 Reason For Visit: psychosis Subjective Notes: Conditional Voluntary Interim History: Pt continues on 1:1 for safety. Pt reports feeling physically tired and this is affecting her ability to participate in groups. Pt denies SI/HI. She reports she can't talk to this check writer for too long as she is tired. She continues to agree to referrals to OP psych. no meaningful engagement in treatment, I suspect as way to prolonged stay on unit. Medication Compliance: Yes Review of Systems Review of Systems Yes all other systems are reviewed and are negative Constitutional: Denies weight gain and Denies weight loss Cardiovascular: Denies irregular heart rhythm and Denies dyspnea Respiratory: Denies dyspnea Gastrointestinal: Reports dyspepsia and Reports diarrhea Mental Status Exam Mental Status Exam Narrative: Appearance: casually groomed, fair hygiene in NAD Behavior:cooperative psychomotor:no agitation or retardation noted Speech:clear, normal rate/rhythm/volume, spontaneous Thought process:tangential Thought content:no signs of psychosis, feeling lonely, overwhelmed Mood: overwhelmed Affect: congruent, anxious SI:none HI:none VH/AH:none Delusions:no overt delusional content reported Insight/judgment:fair x 2. Memory/cog: alert, oriented x 3. grossly intact to conversational testing. Diagnostics Vital Signs (24Hr): Vital Signs - 24 hr 12/29/21 21:07 12/30/21 08:00 Temperature 97.9 F 98 F Pulse Rate 96 104 H Respiratory Rate 17 15 Blood Pressure 138/74 140/59 H Pulse Oximetry 100 98 BMI result Body Mass Index 28.5 Labs Results: 12/23/21 07:36 Medications Medications Current Medications Acetaminophen (Acetaminophen 325 Mg Tablet) 650 mg PO Q6H PRN PRN Reason: Headache/Pain Mild Scale (1-3) Last Admin: 12/25/21 05:49 Dose: 650 mg Documented by: Al Hydroxide/Mg Hydroxide (Magnesium Hydrox/Alum Hydrox 30 Ml Oral.Susp) 30 ml PO Q6H PRN PRN Reason: Heartburn/Nausea Gabapentin (Gabapentin 600 Mg Tablet) 600 mg PO BEDTIME FELIX Last Admin: 12/29/21 20:40 Dose: 600 mg Documented by: Hydroxyzine HCl (Hydroxyzine Hcl 25 Mg Tablet) 25 mg PO BEDTIME PRN PRN Reason: Anxiety Last Admin: 12/30/21 08:21 Dose: 25 mg Documented by: Loperamide HCl (Loperamide Hcl 2 Mg Capsule) 4 mg PO Q4H PRN PRN Reason: Diarrhea Last Admin: 12/29/21 13:04 Dose: 4 mg Documented by: Magnesium Hydroxide (Milk Of Magnesia 30 Ml Oral.Susp) 30 ml PO DAILY PRN PRN Reason: Constipation Metoprolol Tartrate (Metoprolol Tartrate 50 Mg Tablet) 50 mg PO DAILY [facility]; Protocol Last Admin: 12/30/21 08:21 Dose: 50 mg Documented by: Mirtazapine (Mirtazapine 30 Mg Tablet) 30 mg PO BEDTIME FELIX Last Admin: 12/29/21 20:40 Dose: 30 mg Documented by: Omeprazole (Omeprazole 20 Mg Capsule.Dr) 20 mg PO DAILY@0630 [facility] Last Admin: 12/30/21 06:38 Dose: 20 mg Documented by: Quetiapine Fumarate (Quetiapine Fumarate 300 Mg Tablet) 300 mg PO BEDTIME [facility] Last Admin: 12/29/21 20:40 Dose: 300 mg Documented by: Trazodone HCl (Trazodone Hcl 50 Mg Tablet) 50 mg PO BEDTIME PRN PRN Reason: Insomnia Last Admin: 12/27/21 00:27 Dose: 50 mg Documented by: Allergies Allergies Allergy/AdvReac Type Severity Reaction Status Date / Time codeine Allergy Unknown Unknown Verified 12/22/21 15:45 fentanyl Allergy Unknown Unknown Verified 12/22/21 15:45 prochlorperazine Allergy Unknown Unknown Verified 12/22/21 15:45 [From Compazine] Sulfa (Sulfonamide Allergy Unknown Unknown Verified 12/22/21 15:45 Antibiotics) ziprasidone [From Geodon] Allergy Unknown Unknown Verified 12/22/21 15:45 Assessment & Plan Assessment & Plan (1) MDD (major depressive disorder), recurrent episode, moderate: Status: Acute Code(s): F33.1 - Major depressive disorder, recurrent, moderate (2) Borderline personality disorder: Status: Acute Code(s): F60.3 - Borderline personality disorder Plan continue current medications CV, 1:1 for safety- do think pt may increase self harm to delay discharge, rather than active suicidality. Obtain collateral information. I spent minutes with the patient and/or on the patient floor today, greater than?50% of which was spent counseling/coordinating care. Reason for contiued inpatient stay Substantial Risk for: harm to self
[2021-12-30 18:00] VITALS: BP 137/65; PULSE 96; RESP 17; TEMP 36.4; O2SAT 98
[2021-12-30] MEDS: QUEtiapine Fumarate 300 MG TABLET PO (19:51)
[2021-12-30] MEDS: Mirtazapine 30 MG TABLET PO (19:51)
[2021-12-30] MEDS: Gabapentin 600 MG TABLET PO (19:51)
[2021-12-31] MEDS: Omeprazole 20 MG CAPSULE.DR PO (05:56)
[2021-12-31 06:00] VITALS: BP 136/70; PULSE 102; RESP 16; TEMP 36.7; O2SAT 98
[2021-12-31] MEDS: Metoprolol Tartrate 50 MG TABLET PO (08:27)
--- NOTE | 2021-12-31 12:49 | PM.EVENT ---
Event Note Date of Service: 12/31/21 Event Note: consulted for rt wrist redness patient feels right wrist redness has improved denies fever chills no pain. On examination patient sitting comfortably awake alert in no distress right wrist linear cut healing well with no tenderness, no fluctuation or no drainage assessment and plan right wrist wound healing well with no evidence of acute infection, recommend not to wash the area or apply any Band-Aid .
--- NOTE | 2021-12-31 16:59 | P.PNPSI_ITS ---
Subjective Subjective Date of Service: 12/31/21 Reason For Visit: psychosis Subjective Notes: Conditional Voluntary Interim History: met with patient. Discussed with no thing. On one-to-one observation due to concerns around self-harm. Patient reports frustration at being on one-to-one observation and reports being annoyed with herself that she broken toothbrush and tried to cut her arm. Also acknowledged feeling that her mood was unstable, despite wanting discharge. We did discuss the paradox of wanting discharge and hurting self so remaining on one-to-one recently. reports she is staying in her room because she is frustrated rather than participating groups. Reports that she needs to move away from her family get a car and live in [place]. Had no concrete plans around this. Reports working at [employer] the last 40 years at [employer]. Reports sleep has been okay. Adamantly denies thoughts of self-harm today. No overt psychosis noted Medication Compliance: Yes Side effects from medications: No Attending Groups: No Review of Systems Acute medical concerns: No Review of Systems Review of Systems unremarkable Mental Status Exam Mental Status Exam Narrative: Seen in room. Appropriately dressed. Fair hygiene. There is some difficulty articulating recent circumstances but did appear largely organized. Frustrated. No overt depression noted. Denies SI or self-harm ideas. No HI evident. No psychosis evident. Insight and judgment do appear limited Diagnostics Vital Signs (24Hr): Vital Signs - 24 hr 12/30/21 18:00 12/31/21 06:00 Temperature 97.6 F 98.0 F Pulse Rate 96 102 H Respiratory Rate 17 16 Blood Pressure 137/65 136/70 Pulse Oximetry 98 98 BMI result Body Mass Index 28.5 Labs Results: 12/23/21 07:36 Medications Medications Current Medications Acetaminophen (Acetaminophen 325 Mg Tablet) 650 mg PO Q6H PRN PRN Reason: Headache/Pain Mild Scale (1-3) Last Admin: 12/25/21 05:49 Dose: 650 mg Documented by: Al Hydroxide/Mg Hydroxide (Magnesium Hydrox/Alum Hydrox 30 Ml Oral.Susp) 30 ml PO Q6H PRN PRN Reason: Heartburn/Nausea Gabapentin (Gabapentin 600 Mg Tablet) 600 mg PO BEDTIME FELIX Last Admin: 12/30/21 19:51 Dose: 600 mg Documented by: Hydroxyzine HCl (Hydroxyzine Hcl 25 Mg Tablet) 25 mg PO BEDTIME PRN PRN Reason: Anxiety Last Admin: 12/30/21 08:21 Dose: 25 mg Documented by: Loperamide HCl (Loperamide Hcl 2 Mg Capsule) 4 mg PO Q4H PRN PRN Reason: Diarrhea Last Admin: 12/29/21 13:04 Dose: 4 mg Documented by: Magnesium Hydroxide (Milk Of Magnesia 30 Ml Oral.Susp) 30 ml PO DAILY PRN PRN Reason: Constipation Metoprolol Tartrate (Metoprolol Tartrate 50 Mg Tablet) 50 mg PO DAILY [facility]; Protocol Last Admin: 12/31/21 08:27 Dose: 50 mg Documented by: Mirtazapine (Mirtazapine 30 Mg Tablet) 30 mg PO BEDTIME FELIX Last Admin: 12/30/21 19:51 Dose: 30 mg Documented by: Omeprazole (Omeprazole 20 Mg Capsule.Dr) 20 mg PO DAILY@0630 [facility] Last Admin: 12/31/21 05:56 Dose: 20 mg Documented by: Quetiapine Fumarate (Quetiapine Fumarate 300 Mg Tablet) 300 mg PO BEDTIME FELIX Last Admin: 12/30/21 19:51 Dose: 300 mg Documented by: Trazodone HCl (Trazodone Hcl 50 Mg Tablet) 50 mg PO BEDTIME PRN PRN Reason: Insomnia Last Admin: 12/27/21 00:27 Dose: 50 mg Documented by: Allergies Allergies Allergy/AdvReac Type Severity Reaction Status Date / Time codeine Allergy Unknown Unknown Verified 12/22/21 15:45 fentanyl Allergy Unknown Unknown Verified 12/22/21 15:45 prochlorperazine Allergy Unknown Unknown Verified 12/22/21 15:45 [From Compazine] Sulfa (Sulfonamide Allergy Unknown Unknown Verified 12/22/21 15:45 Antibiotics) ziprasidone [From Geodon] Allergy Unknown Unknown Verified 12/22/21 15:45 Assessment & Plan Assessment & Plan (1) MDD (major depressive disorder), recurrent episode, moderate: Status: Acute Code(s): F33.1 - Major depressive disorder, recurrent, moderate (2) Borderline personality disorder: Status: Acute Code(s): F60.3 - Borderline personality disorder Plan continue current medications CV, 1:1 for safety- do think pt may increase self harm to delay discharge, rather than active suicidality. Obtain collateral information. 12/31/2021: No changes to team's primary treatment plan I spent minutes with the patient and/or on the patient floor today, greater than?50% of which was spent counseling/coordinating care. Reason for contiued inpatient stay Substantial Risk for: harm to self
[2021-12-31 18:00] VITALS: BP 134/58; PULSE 93; RESP 16; TEMP 36.1; O2SAT 95
[2021-12-31] MEDS: Gabapentin 600 MG TABLET PO (21:10)
[2021-12-31] MEDS: QUEtiapine Fumarate 300 MG TABLET PO (21:10)
[2021-12-31] MEDS: Mirtazapine 30 MG TABLET PO (21:10)
[2022-01-01] MEDS: Omeprazole 20 MG CAPSULE.DR PO (05:54)
[2022-01-01 06:00] VITALS: BP 157/63; PULSE 79; RESP 16; TEMP 36.7; O2SAT 97
--- NOTE | 2022-01-01 14:36 | P.PNPSI_ITS ---
Subjective Subjective Date of Service: 01/01/22 Reason For Visit: psychosis Subjective Notes: Conditional Voluntary Interim History: Met with patient. Discussed with nursing. On one-to-one observation due to concerns around self-harm. Still feels her mood can be unstable, despite wanting discharge. Isolating in room- unclear why. Wants to clarify work and if she still has a job. Did clarify she has been at her current job 3 months (not 40 years). Still wants to move away from her family get a car and live in [place]. Reports sleep has been okay. Adamantly denies thoughts of self-harm today. No overt psychosis noted Medication Compliance: Yes Side effects from medications: No Attending Groups: No Review of Systems Acute medical concerns: No Review of Systems Review of Systems unremarkable Mental Status Exam Mental Status Exam Narrative: Seen in room. Appropriately dressed. Fair hygiene. Did appear largely organized. Frustrated. No overt depression noted. Denies SI or self-harm ideas. No HI evident. No psychosis evident. Insight and judgment do appear limited Diagnostics Vital Signs (24Hr): Vital Signs - 24 hr 12/31/21 18:00 01/01/22 06:00 Temperature 97 F 98.0 F Pulse Rate 93 79 Respiratory Rate 16 16 Blood Pressure 134/58 L 157/63 H Pulse Oximetry 95 97 BMI result Body Mass Index 28.5 Labs Results: 12/23/21 07:36 Medications Medications Current Medications Acetaminophen (Acetaminophen 325 Mg Tablet) 650 mg PO Q6H PRN PRN Reason: Headache/Pain Mild Scale (1-3) Last Admin: 12/25/21 05:49 Dose: 650 mg Documented by: Al Hydroxide/Mg Hydroxide (Magnesium Hydrox/Alum Hydrox 30 Ml Oral.Susp) 30 ml PO Q6H PRN PRN Reason: Heartburn/Nausea Gabapentin (Gabapentin 600 Mg Tablet) 600 mg PO BEDTIME FELIX Last Admin: 12/31/21 21:10 Dose: 600 mg Documented by: Hydroxyzine HCl (Hydroxyzine Hcl 25 Mg Tablet) 25 mg PO BEDTIME PRN PRN Reason: Anxiety Last Admin: 12/30/21 08:21 Dose: 25 mg Documented by: Loperamide HCl (Loperamide Hcl 2 Mg Capsule) 4 mg PO Q4H PRN PRN Reason: Diarrhea Last Admin: 12/29/21 13:04 Dose: 4 mg Documented by: Magnesium Hydroxide (Milk Of Magnesia 30 Ml Oral.Susp) 30 ml PO DAILY PRN PRN Reason: Constipation Metoprolol Tartrate (Metoprolol Tartrate 50 Mg Tablet) 50 mg PO DAILY [facility]; Protocol Last Admin: 01/01/22 09:22 Dose: Not Given Documented by: Mirtazapine (Mirtazapine 30 Mg Tablet) 30 mg PO BEDTIME [facility] Last Admin: 12/31/21 21:10 Dose: 30 mg Documented by: Omeprazole (Omeprazole 20 Mg Capsule.Dr) 20 mg PO DAILY@0630 [facility] Last Admin: 01/01/22 05:54 Dose: 20 mg Documented by: Quetiapine Fumarate (Quetiapine Fumarate 300 Mg Tablet) 300 mg PO BEDTIME [facility] Last Admin: 12/31/21 21:10 Dose: 300 mg Documented by: Trazodone HCl (Trazodone Hcl 50 Mg Tablet) 50 mg PO BEDTIME PRN PRN Reason: Insomnia Last Admin: 12/27/21 00:27 Dose: 50 mg Documented by: Allergies Allergies Allergy/AdvReac Type Severity Reaction Status Date / Time codeine Allergy Unknown Unknown Verified 12/22/21 15:45 fentanyl Allergy Unknown Unknown Verified 12/22/21 15:45 prochlorperazine Allergy Unknown Unknown Verified 12/22/21 15:45 [From Compazine] Sulfa (Sulfonamide Allergy Unknown Unknown Verified 12/22/21 15:45 Antibiotics) ziprasidone [From Geodon] Allergy Unknown Unknown Verified 12/22/21 15:45 Assessment & Plan Assessment & Plan (1) MDD (major depressive disorder), recurrent episode, moderate: Status: Acute Code(s): F33.1 - Major depressive disorder, recurrent, moderate (2) Borderline personality disorder: Status: Acute Code(s): F60.3 - Borderline personality disorder Plan continue current medications CV, 1:1 for safety- do think pt may increase self harm to delay discharge, rather than active suicidality. Obtain collateral information. 01/01/2022: No changes to team's primary treatment plan I spent minutes with the patient and/or on the patient floor today, greater than?50% of which was spent counseling/coordinating care. Patient educated on: therapeutic strategies Reason for contiued inpatient stay Substantial Risk for: harm to self
[2022-01-01 18:00] VITALS: BP 143/75; PULSE 99; RESP 18; TEMP 36.1; O2SAT 100
[2022-01-01] MEDS: Gabapentin 600 MG TABLET PO (21:40)
[2022-01-01] MEDS: QUEtiapine Fumarate 300 MG TABLET PO (21:40)
[2022-01-01] MEDS: Mirtazapine 30 MG TABLET PO (21:41)
[2022-01-01] MEDS: hydrOXYzine HCL 25 MG TABLET PO (21:58)
[2022-01-01] MEDS: Zolpidem Tartrate 5 MG TABLET PO (22:27)
--- NOTE | 2022-01-01 22:33 | PC.NURSE ---
pt had c/o of insomnia. contacted dr ruiz in regard to increasing agitation and insomnia. plan 1. 1 dose of ambien 5 mg po. while in the prcocess of procurring ambien. pt became extremely hostile. she jumped out of bed and began attempting to break her eyes glasses to remove lens and ear pieces. pt weeping saying i fucked up repeatedly. pt approached and said that she just cant take it with the sitter. pt will not elaborate on her plan to break glasses and what she had planned with pieces. all belongings removed from room. [address]
--- NOTE | 2022-01-02 04:49 | PC.NURSE ---
pt fell asleep approximately at 0030. she has bee somnolent with snoring noted. pts eye glasses have been secured in white envelope with pts belongings in the med room.
--- NOTE | 2022-01-02 04:55 | PC.NURSE ---
2235-dr ruiz contacted and notified about pts attempt to remove glass lens from glasses. 1:[address] pt laying in bed and other times sitting on the edge of the bed talking about how she messed up.
[2022-01-02 06:00] VITALS: BP 131/64; PULSE 101; RESP 12; TEMP 36.6; O2SAT 98
[2022-01-02] MEDS: Omeprazole 20 MG CAPSULE.DR PO (08:19)
[2022-01-02] MEDS: Metoprolol Tartrate 50 MG TABLET PO (08:19)
--- NOTE | 2022-01-02 13:24 | HO.PSYCHPN ---
Subjective Subjective Date of Service: 01/02/22 Reason For Visit: psychosis Subjective Notes: Conditional Voluntary Interim History: Pt continues on one to one for safety. Pt denies SI/HI. She also reports cutting wrist was not suicide attempt but way to relief emotional distressed. Pt continues to be superficial, not engaging much in meaningful conversation as to goal of being on unit and aftercare planning. Pt declined to talk with clinician today. Medication Compliance: Yes Side effects from medications: No Review of Systems Review of Systems unremarkable Yes all other systems are reviewed and are negative Constitutional: Denies weight gain and Denies weight loss Cardiovascular: Denies irregular heart rhythm and Denies dyspnea Respiratory: Denies dyspnea Gastrointestinal: Reports dyspepsia and Reports diarrhea Mental Status Exam Mental Status Exam Narrative: Seen in room. Appropriately dressed. Fair hygiene. Did appear largely organized. Frustrated. No overt depression noted. Denies SI or self-harm ideas. No HI evident. No psychosis evident. Insight and judgment do appear limited Diagnostics Vital Signs (24Hr): Vital Signs - 24 hr 01/01/22 18:00 01/02/22 06:00 Temperature 96.9 F 97.8 F Pulse Rate 99 101 H Respiratory Rate 18 12 Blood Pressure 143/75 H 131/64 Pulse Oximetry 100 98 BMI result Body Mass Index 28.5 Labs Results: 12/23/21 07:36 Medications Medications Current Medications Acetaminophen (Acetaminophen 325 Mg Tablet) 650 mg PO Q6H PRN PRN Reason: Headache/Pain Mild Scale (1-3) Last Admin: 12/25/21 05:49 Dose: 650 mg Documented by: Al Hydroxide/Mg Hydroxide (Magnesium Hydrox/Alum Hydrox 30 Ml Oral.Susp) 30 ml PO Q6H PRN PRN Reason: Heartburn/Nausea Gabapentin (Gabapentin 600 Mg Tablet) 600 mg PO BEDTIME FELIX Last Admin: 01/01/22 21:40 Dose: 600 mg Documented by: Hydroxyzine HCl (Hydroxyzine Hcl 25 Mg Tablet) 25 mg PO BEDTIME PRN PRN Reason: Anxiety Last Admin: 01/01/22 21:58 Dose: 25 mg Documented by: Loperamide HCl (Loperamide Hcl 2 Mg Capsule) 4 mg PO Q4H PRN PRN Reason: Diarrhea Last Admin: 12/29/21 13:04 Dose: 4 mg Documented by: Magnesium Hydroxide (Milk Of Magnesia 30 Ml Oral.Susp) 30 ml PO DAILY PRN PRN Reason: Constipation Metoprolol Tartrate (Metoprolol Tartrate 50 Mg Tablet) 50 mg PO DAILY [facility]; Protocol Last Admin: 01/02/22 08:19 Dose: 50 mg Documented by: Mirtazapine (Mirtazapine 30 Mg Tablet) 30 mg PO BEDTIME [facility] Last Admin: 01/01/22 21:41 Dose: 30 mg Documented by: Omeprazole (Omeprazole 20 Mg Capsule.Dr) 20 mg PO DAILY@0630 [facility] Last Admin: 01/02/22 08:19 Dose: 20 mg Documented by: Quetiapine Fumarate (Quetiapine Fumarate 300 Mg Tablet) 300 mg PO BEDTIME [facility] Last Admin: 01/01/22 21:40 Dose: 300 mg Documented by: Trazodone HCl (Trazodone Hcl 50 Mg Tablet) 50 mg PO BEDTIME PRN PRN Reason: Insomnia Last Admin: 12/27/21 00:27 Dose: 50 mg Documented by: Zolpidem Tartrate (Zolpidem Tartrate 5 Mg Tablet) 5 mg PO ONCE PRN PRN Reason: Insomnia Last Admin: 01/01/22 22:27 Dose: 5 mg Documented by: Allergies Allergies Allergy/AdvReac Type Severity Reaction Status Date / Time codeine Allergy Unknown Unknown Verified 12/22/21 15:45 fentanyl Allergy Unknown Unknown Verified 12/22/21 15:45 prochlorperazine Allergy Unknown Unknown Verified 12/22/21 15:45 [From Compazine] Sulfa (Sulfonamide Allergy Unknown Unknown Verified 12/22/21 15:45 Antibiotics) ziprasidone [From Geodon] Allergy Unknown Unknown Verified 12/22/21 15:45 Assessment & Plan Assessment & Plan (1) MDD (major depressive disorder), recurrent episode, moderate: Status: Acute Code(s): F33.1 - Major depressive disorder, recurrent, moderate (2) Borderline personality disorder: Status: Acute Code(s): F60.3 - Borderline personality disorder Plan continue current medications CV, 1:1 for safety- do think pt may increase self harm to delay discharge, rather than active suicidality. Obtain collateral information. 01/01/2022: No changes to team's primary treatment plan 01/02- continue current medications. tentative d/c on 01/04/22. may need collateral info from daughter to assess level of risks as pt very superficial and not meaningfully engaging in treatment here on unit. I spent minutes with the patient and/or on the patient floor today, greater than?50% of which was spent counseling/coordinating care. Reason for contiued inpatient stay Substantial Risk for: harm to self
[2022-01-02] MEDS: QUEtiapine Fumarate 300 MG TABLET PO (19:59)
[2022-01-02 20:00] VITALS: BP 131/77; PULSE 106; RESP 18; TEMP 36.1; O2SAT 99
[2022-01-02] MEDS: Gabapentin 600 MG TABLET PO (20:00)
[2022-01-02] MEDS: Mirtazapine 30 MG TABLET PO (20:00)
[2022-01-03] MEDS: traZODone HCL 50 MG TABLET PO (02:19)
[2022-01-03] MEDS: hydrOXYzine HCL 25 MG TABLET PO (02:19)
[2022-01-03 07:30] VITALS: BP 127/68; PULSE 111; RESP 18; O2SAT 96
--- NOTE | 2022-01-03 13:39 | HO.PSYCHPN ---
Subjective Subjective Date of Service: 01/03/22 Reason For Visit: psychosis Subjective Notes: Conditional Voluntary Interim History: Pt continues on one to one for safety. Pt reports she does not remember that we had discussed d/c for tomorrow. She reports she does not want to return to apartment because it's too big. She does not have any other housing arrangements. She denies that she is fearful about returning or that someone may be after her. She simply states it's too big, I don't need all that space. She states that landlord not aware and that she does not plan to call landlord in advanced. Pt denies SI/HI. She reports she needs help with housing, which pt was informed hospital has limited housing resources and all this time she has been here in hospital she has reported she can return there. Pt also reports she is an alcohol, need to go to AA meeting and need a sponsor. Review of Systems Review of Systems unremarkable Yes all other systems are reviewed and are negative Constitutional: Denies weight gain and Denies weight loss Cardiovascular: Denies irregular heart rhythm and Denies dyspnea Respiratory: Denies dyspnea Gastrointestinal: Reports dyspepsia and Reports diarrhea Mental Status Exam Mental Status Exam Narrative: Appearance: casually groomed, fair hygiene in NAD Behavior:cooperative psychomotor:no agitation or retardation noted Speech:clear, normal rate/rhythm/volume, spontaneous Thought process:tangential Thought content:no signs of psychosis, feeling lonely, overwhelmed Mood: overwhelmed Affect: congruent, anxious SI:none HI:none VH/AH:none Delusions:? persecutory Insight/judgment:fair x 2. Memory/cog: alert, oriented x 3. grossly intact to conversational testing. Diagnostics Vital Signs (24Hr): Vital Signs - 24 hr 01/02/22 20:00 01/03/22 07:30 Temperature 97 F Pulse Rate 106 H 111 H Respiratory Rate 18 18 Blood Pressure 131/77 127/68 Pulse Oximetry 99 96 BMI result Body Mass Index 28.5 Labs Results: 12/23/21 07:36 Medications Medications Current Medications Acetaminophen (Acetaminophen 325 Mg Tablet) 650 mg PO Q6H PRN PRN Reason: Headache/Pain Mild Scale (1-3) Last Admin: 12/25/21 05:49 Dose: 650 mg Documented by: Al Hydroxide/Mg Hydroxide (Magnesium Hydrox/Alum Hydrox 30 Ml Oral.Susp) 30 ml PO Q6H PRN PRN Reason: Heartburn/Nausea Gabapentin (Gabapentin 600 Mg Tablet) 600 mg PO BEDTIME FELIX Last Admin: 01/02/22 20:00 Dose: 600 mg Documented by: Hydroxyzine HCl (Hydroxyzine Hcl 25 Mg Tablet) 25 mg PO BEDTIME PRN PRN Reason: Anxiety Last Admin: 01/03/22 02:19 Dose: 25 mg Documented by: Loperamide HCl (Loperamide Hcl 2 Mg Capsule) 4 mg PO Q4H PRN PRN Reason: Diarrhea Last Admin: 12/29/21 13:04 Dose: 4 mg Documented by: Magnesium Hydroxide (Milk Of Magnesia 30 Ml Oral.Susp) 30 ml PO DAILY PRN PRN Reason: Constipation Metoprolol Tartrate (Metoprolol Tartrate 50 Mg Tablet) 50 mg PO DAILY [facility]; Protocol Last Admin: 01/03/22 08:53 Dose: Not Given Documented by: Mirtazapine (Mirtazapine 30 Mg Tablet) 30 mg PO BEDTIME [facility] Last Admin: 01/02/22 20:00 Dose: 30 mg Documented by: Omeprazole (Omeprazole 20 Mg Capsule.Dr) 20 mg PO DAILY@0630 [facility] Last Admin: 01/03/22 08:52 Dose: Not Given Documented by: Quetiapine Fumarate (Quetiapine Fumarate 300 Mg Tablet) 300 mg PO BEDTIME [facility] Last Admin: 01/02/22 19:59 Dose: 300 mg Documented by: Trazodone HCl (Trazodone Hcl 50 Mg Tablet) 50 mg PO BEDTIME PRN PRN Reason: Insomnia Last Admin: 01/03/22 02:19 Dose: 50 mg Documented by: Allergies Allergies Allergy/AdvReac Type Severity Reaction Status Date / Time codeine Allergy Unknown Unknown Verified 12/22/21 15:45 fentanyl Allergy Unknown Unknown Verified 12/22/21 15:45 prochlorperazine Allergy Unknown Unknown Verified 12/22/21 15:45 [From Compazine] Sulfa (Sulfonamide Allergy Unknown Unknown Verified 12/22/21 15:45 Antibiotics) ziprasidone [From Geodon] Allergy Unknown Unknown Verified 12/22/21 15:45 Assessment & Plan Assessment & Plan (1) MDD (major depressive disorder), recurrent episode, moderate: Status: Acute Code(s): F33.1 - Major depressive disorder, recurrent, moderate (2) Borderline personality disorder: Status: Acute Code(s): F60.3 - Borderline personality disorder Plan continue current medications CV, 1:1 for safety- do think pt may increase self harm to delay discharge, rather than active suicidality. Obtain collateral information. 01/01/2022: No changes to team's primary treatment plan 01/02- continue current medications. tentative d/c on 01/04/22. may need collateral info from daughter to assess level of risk as pt very superficial and not meaningfully engaging in treatment here on unit. 01/03- collateral information gathered from PCP Dr. 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 Dr. Lee has noticed persecutory delusions in last 2 years, pt moved from different motels due to persecutory delusions. Pt also with somatic complaints but medical work up did not reveal anything. PCP denies that pt has hx alcohol use disorder- as reported by pt. collateral information from sister Gail ([phone]) who reports in past year she has seen pt more paranoid, thinking someone is after her. She reports pt stayed with her for 2 weeks in 10/2021 and pt appeared paranoid, reporting that someone was in the attic Sister reports she has not seen her as suspicious and paranoia as in past year. Sister denies that pt has alcohol use disorder. Pt agrees to start perphenazine 2mg po TID- target persecutory delusions. I spent __25____ minutes with the patient and/or on the patient floor today, greater than?50% of which was spent counseling/coordinating care. Patient educated on: diagnosis Reason for contiued inpatient stay Substantial Risk for: inability to function
[2022-01-03 21:19] VITALS: BP 121/76; PULSE 106; RESP 18; TEMP 36.4; O2SAT 97
[2022-01-03] MEDS: Mirtazapine 30 MG TABLET PO (21:53)
[2022-01-03] MEDS: Gabapentin 600 MG TABLET PO (21:53)
[2022-01-03] MEDS: QUEtiapine Fumarate 300 MG TABLET PO (21:54)
[2022-01-03] MEDS: Perphenazine 2 MG TABLET PO (22:08)
[2022-01-04] MEDS: Acetaminophen 325 MG TABLET 650 MG PO (05:30)
[2022-01-04] MEDS: Omeprazole 20 MG CAPSULE.DR PO (05:30)
[2022-01-04 07:25] VITALS: BP 124/62; PULSE 96; RESP 14; TEMP 36.2; O2SAT 99
[2022-01-04] MEDS: Metoprolol Tartrate 50 MG TABLET PO (09:32)
[2022-01-04] MEDS: Perphenazine 2 MG TABLET PO ×3 (09:32→20:35)
--- NOTE | 2022-01-04 15:15 | P.PNPSI_ITS ---
Subjective Subjective Date of Service: 01/04/22 Reason For Visit: psychosis Subjective Notes: Conditional Voluntary Interim History: Pt continues on one to one for safety. Pt was started on perphenazine for paranoia, which has been reported by her PCP and her sister. Pt continues to report that she does not feel safe returning to her apartment she rents, but does not explain what makes her not want to return there and rather face once again being homeless. Pt has been visible, eating well. No self harm. She denies SI/HI. Medication Compliance: Intermittent Review of Systems Review of Systems unremarkable Yes all other systems are reviewed and are negative Constitutional: Denies weight gain and Denies weight loss Cardiovascular: Denies irregular heart rhythm and Denies dyspnea Respiratory: Denies dyspnea Gastrointestinal: Reports dyspepsia and Reports diarrhea Mental Status Exam Mental Status Exam Narrative: Appearance: casually groomed, fair hygiene in NAD Behavior:cooperative psychomotor:no agitation or retardation noted Speech:clear, normal rate/rhythm/volume, spontaneous Thought process:tangential Thought content:no signs of psychosis, feeling lonely, overwhelmed Mood: overwhelmed Affect: congruent, anxious SI:none HI:none VH/AH:none Delusions:? persecutory Insight/judgment:fair x 2. Memory/cog: alert, oriented x 3. grossly intact to conversational testing. Diagnostics Vital Signs (24Hr): Vital Signs - 24 hr 01/03/22 21:19 01/04/22 07:25 Temperature 97.5 F 97.2 F Pulse Rate 106 H 96 Respiratory Rate 18 14 Blood Pressure 121/76 124/62 Pulse Oximetry 97 99 BMI result Body Mass Index 28.5 Labs Results: 12/23/21 07:36 Medications Medications Current Medications Acetaminophen (Acetaminophen 325 Mg Tablet) 650 mg PO Q6H PRN PRN Reason: Headache/Pain Mild Scale (1-3) Last Admin: 01/04/22 05:30 Dose: 650 mg Documented by: Al Hydroxide/Mg Hydroxide (Magnesium Hydrox/Alum Hydrox 30 Ml Oral.Susp) 30 ml PO Q6H PRN PRN Reason: Heartburn/Nausea Gabapentin (Gabapentin 600 Mg Tablet) 600 mg PO BEDTIME FELIX Last Admin: 01/03/22 21:53 Dose: 600 mg Documented by: Hydroxyzine HCl (Hydroxyzine Hcl 25 Mg Tablet) 25 mg PO BEDTIME PRN PRN Reason: Anxiety Last Admin: 01/03/22 02:19 Dose: 25 mg Documented by: Loperamide HCl (Loperamide Hcl 2 Mg Capsule) 4 mg PO Q4H PRN PRN Reason: Diarrhea Last Admin: 12/29/21 13:04 Dose: 4 mg Documented by: Magnesium Hydroxide (Milk Of Magnesia 30 Ml Oral.Susp) 30 ml PO DAILY PRN PRN Reason: Constipation Metoprolol Tartrate (Metoprolol Tartrate 50 Mg Tablet) 50 mg PO DAILY [facility]; Protocol Last Admin: 01/04/22 09:32 Dose: 50 mg Documented by: Mirtazapine (Mirtazapine 30 Mg Tablet) 30 mg PO BEDTIME [facility] Last Admin: 01/03/22 21:53 Dose: 30 mg Documented by: Omeprazole (Omeprazole 20 Mg Capsule.Dr) 20 mg PO DAILY@0630 [facility] Last Admin: 01/04/22 05:30 Dose: 20 mg Documented by: Perphenazine (Perphenazine 2 Mg Tablet) 2 mg PO TID [facility] Last Admin: 01/04/22 09:32 Dose: 2 mg Documented by: Quetiapine Fumarate (Quetiapine Fumarate 300 Mg Tablet) 300 mg PO BEDTIME [facility] Last Admin: 01/03/22 21:54 Dose: 300 mg Documented by: Trazodone HCl (Trazodone Hcl 50 Mg Tablet) 50 mg PO BEDTIME PRN PRN Reason: Insomnia Last Admin: 01/03/22 02:19 Dose: 50 mg Documented by: Allergies Allergies Allergy/AdvReac Type Severity Reaction Status Date / Time codeine Allergy Unknown Unknown Verified 12/22/21 15:45 fentanyl Allergy Unknown Unknown Verified 12/22/21 15:45 prochlorperazine Allergy Unknown Unknown Verified 12/22/21 15:45 [From Compazine] Sulfa (Sulfonamide Allergy Unknown Unknown Verified 12/22/21 15:45 Antibiotics) ziprasidone [From Geodon] Allergy Unknown Unknown Verified 12/22/21 15:45 Assessment & Plan Assessment & Plan (1) Borderline personality disorder: Status: Acute Code(s): F60.3 - Borderline personality disorder (2) MDD (major depressive disorder), recurrent, severe, with psychosis: Status: Acute Code(s): F33.3 - Major depressive disorder, recurrent, severe with psychotic symptoms Plan continue current medications CV, 1:1 for safety- do think pt may increase self harm to delay discharge, rather than active suicidality. Obtain collateral information. 01/01/2022: No changes to team's primary treatment plan 01/02- continue current medications. tentative d/c on 01/04/22. may need collateral info from daughter to assess level of risk as pt very superficial and not meaningfully engaging in treatment here on unit. 01/03- collateral information gathered from PCP Dr. 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 Dr. Lee has noticed persecutory delusions in last 2 years, pt moved from different motels due to persecutory delusions. Pt also with somatic complaints but medical work up did not reveal anything. PCP denies that pt has hx alcohol use disorder- as reported by pt. collateral information from sister Gail ([phone]) who reports in past year she has seen pt more paranoid, thinking someone is after her. She reports pt stayed with her for 2 weeks in 10/2021 and pt appeared paranoid, reporting that someone was in the attic Sister reports she has not seen her as suspicious and paranoia as in past year. Sister denies that pt has alcohol use disorder. Pt agrees to start perphenazine 2mg po TID- target persecutory delusions. 01/04 continue perphenazine, remeron. I spent minutes with the patient and/or on the patient floor today, greater than?50% of which was spent counseling/coordinating care. Reason for contiued inpatient stay Substantial Risk for: harm to self and inability to function
[2022-01-04 18:00] VITALS: BP 138/65; PULSE 99; RESP 17; TEMP 36.6; O2SAT 99
[2022-01-04] MEDS: Mirtazapine 30 MG TABLET PO (20:35)
[2022-01-04] MEDS: QUEtiapine Fumarate 300 MG TABLET PO (20:35)
[2022-01-04] MEDS: Gabapentin 600 MG TABLET PO (20:35)
[2022-01-05] MEDS: Omeprazole 20 MG CAPSULE.DR PO (05:46)
[2022-01-05 07:00] VITALS: BMI 28.9
[2022-01-05 07:15] VITALS: BP 129/77; PULSE 96; RESP 14; TEMP 36.5; O2SAT 96
[2022-01-05] MEDS: Metoprolol Tartrate 50 MG TABLET PO (10:16)
[2022-01-05] MEDS: Perphenazine 2 MG TABLET PO ×3 (10:16→20:31)
--- NOTE | 2022-01-05 15:10 | P.PNPSI_ITS ---
Subjective Subjective Date of Service: 01/05/22 Reason For Visit: psychosis Subjective Notes: Conditional Voluntary Interim History: Pt continues on one to one for safety. Pt reports she has been sleeping and eating well. She has been taking medications as prescribed, no side effects noted or reported. Pt continues to report that she does not feel safe returning to her apartment- states it's too big. However, pt reports I know I have to leave at some point. Pt states that she would like to go to [place] but admits she has no where to go there nor providers. She denies SI/HI. She denies VH/Ah. Medication Compliance: Yes Side effects from medications: No Attending Groups: Intermittent Review of Systems Acute medical concerns: No Review of Systems Review of Systems unremarkable Yes all other systems are reviewed and are negative Constitutional: Denies weight gain and Denies weight loss Cardiovascular: Denies irregular heart rhythm and Denies dyspnea Respiratory: Denies dyspnea Gastrointestinal: Reports dyspepsia and Reports diarrhea Mental Status Exam Mental Status Exam Narrative: Appearance: casually groomed, fair hygiene in NAD Behavior:cooperative psychomotor:no agitation or retardation noted Speech:clear, normal rate/rhythm/volume, spontaneous Thought process:tangential Thought content:no signs of psychosis, feeling lonely, overwhelmed Mood: overwhelmed Affect: congruent, anxious SI:none HI:none VH/AH:none Delusions:? persecutory Insight/judgment:fair x 2. Memory/cog: alert, oriented x 3. grossly intact to conversational testing. Diagnostics Vital Signs (24Hr): Vital Signs - 24 hr 01/04/22 18:00 01/05/22 07:15 Temperature 98 F 97.7 F Pulse Rate 99 96 Respiratory Rate 17 14 Blood Pressure 138/65 129/77 Pulse Oximetry 99 96 BMI result Body Mass Index 28.5 Labs Results: 12/23/21 07:36 Medications Medications Current Medications Acetaminophen (Acetaminophen 325 Mg Tablet) 650 mg PO Q6H PRN PRN Reason: Headache/Pain Mild Scale (1-3) Last Admin: 01/04/22 05:30 Dose: 650 mg Documented by: Al Hydroxide/Mg Hydroxide (Magnesium Hydrox/Alum Hydrox 30 Ml Oral.Susp) 30 ml PO Q6H PRN PRN Reason: Heartburn/Nausea Gabapentin (Gabapentin 600 Mg Tablet) 600 mg PO BEDTIME FELIX Last Admin: 01/04/22 20:35 Dose: 600 mg Documented by: Hydroxyzine HCl (Hydroxyzine Hcl 25 Mg Tablet) 25 mg PO BEDTIME PRN PRN Reason: Anxiety Last Admin: 01/03/22 02:19 Dose: 25 mg Documented by: Loperamide HCl (Loperamide Hcl 2 Mg Capsule) 4 mg PO Q4H PRN PRN Reason: Diarrhea Last Admin: 12/29/21 13:04 Dose: 4 mg Documented by: Magnesium Hydroxide (Milk Of Magnesia 30 Ml Oral.Susp) 30 ml PO DAILY PRN PRN Reason: Constipation Metoprolol Tartrate (Metoprolol Tartrate 50 Mg Tablet) 50 mg PO DAILY [facility]; Protocol Last Admin: 01/05/22 10:16 Dose: 50 mg Documented by: Mirtazapine (Mirtazapine 30 Mg Tablet) 30 mg PO BEDTIME [facility] Last Admin: 01/04/22 20:35 Dose: 30 mg Documented by: Omeprazole (Omeprazole 20 Mg Capsule.Dr) 20 mg PO DAILY@0630 [facility] Last Admin: 01/05/22 05:46 Dose: 20 mg Documented by: Perphenazine (Perphenazine 2 Mg Tablet) 2 mg PO TID [facility] Last Admin: 01/05/22 10:16 Dose: 2 mg Documented by: Quetiapine Fumarate (Quetiapine Fumarate 300 Mg Tablet) 300 mg PO BEDTIME [facility] Last Admin: 01/04/22 20:35 Dose: 300 mg Documented by: Trazodone HCl (Trazodone Hcl 50 Mg Tablet) 50 mg PO BEDTIME PRN PRN Reason: Insomnia Last Admin: 01/03/22 02:19 Dose: 50 mg Documented by: Allergies Allergies Allergy/AdvReac Type Severity Reaction Status Date / Time codeine Allergy Unknown Unknown Verified 12/22/21 15:45 fentanyl Allergy Unknown Unknown Verified 12/22/21 15:45 prochlorperazine Allergy Unknown Unknown Verified 12/22/21 15:45 [From Compazine] Sulfa (Sulfonamide Allergy Unknown Unknown Verified 12/22/21 15:45 Antibiotics) ziprasidone [From Geodon] Allergy Unknown Unknown Verified 12/22/21 15:45 Assessment & Plan Assessment & Plan (1) Borderline personality disorder: Status: Acute Code(s): F60.3 - Borderline personality disorder (2) MDD (major depressive disorder), recurrent, severe, with psychosis: Status: Acute Code(s): F33.3 - Major depressive disorder, recurrent, severe with psychotic symptoms Plan continue current medications CV, 1:1 for safety- do think pt may increase self harm to delay discharge, rather than active suicidality. Obtain collateral information. 01/01/2022: No changes to team's primary treatment plan 01/02- continue current medications. tentative d/c on 01/04/22. may need collateral info from daughter to assess level of risk as pt very superficial and not meaningfully engaging in treatment here on unit. 01/03- collateral information gathered from PCP Dr. 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 Dr. Lee has noticed persecutory delusions in last 2 years, pt moved from different motels due to persecutory delusions. Pt also with somatic complaints but medical work up did not reveal anything. PCP denies that pt has hx alcohol use disorder- as reported by pt. collateral information from sister Gail ([phone]) who reports in past year she has seen pt more paranoid, thinking someone is after her. She reports pt stayed with her for 2 weeks in 10/2021 and pt appeared paranoid, reporting that someone was in the attic Sister reports she has not seen her as suspicious and paranoia as in past year. Sister denies that pt has alcohol use disorder. Pt agrees to start perphenazine 2mg po TID- target persecutory delusions. 01/04 continue perphenazine, remeron. 01/05- continue current medications- may adjust dose of perphenazine. I spent minutes with the patient and/or on the patient floor today, greater than?50% of which was spent counseling/coordinating care. Reason for contiued inpatient stay Substantial Risk for: harm to self
--- NOTE | 2022-01-05 16:59 | HO.PSYCHPN ---
Subjective Subjective Reason For Visit: psychosis Diagnostics Vital Signs (24Hr): Vital Signs - 24 hr 01/04/22 18:00 01/05/22 07:15 Temperature 98 F 97.7 F Pulse Rate 99 96 Respiratory Rate 17 14 Blood Pressure 138/65 129/77 Pulse Oximetry 99 96 BMI result Body Mass Index 28.5 Labs Results: 12/23/21 07:36 Medications Medications Current Medications Acetaminophen (Acetaminophen 325 Mg Tablet) 650 mg PO Q6H PRN PRN Reason: Headache/Pain Mild Scale (1-3) Last Admin: 01/04/22 05:30 Dose: 650 mg Documented by: Al Hydroxide/Mg Hydroxide (Magnesium Hydrox/Alum Hydrox 30 Ml Oral.Susp) 30 ml PO Q6H PRN PRN Reason: Heartburn/Nausea Gabapentin (Gabapentin 600 Mg Tablet) 600 mg PO BEDTIME [facility] Last Admin: 01/04/22 20:35 Dose: 600 mg Documented by: Hydroxyzine HCl (Hydroxyzine Hcl 25 Mg Tablet) 25 mg PO BEDTIME PRN PRN Reason: Anxiety Last Admin: 01/03/22 02:19 Dose: 25 mg Documented by: Loperamide HCl (Loperamide Hcl 2 Mg Capsule) 4 mg PO Q4H PRN PRN Reason: Diarrhea Last Admin: 12/29/21 13:04 Dose: 4 mg Documented by: Magnesium Hydroxide (Milk Of Magnesia 30 Ml Oral.Susp) 30 ml PO DAILY PRN PRN Reason: Constipation Metoprolol Tartrate (Metoprolol Tartrate 50 Mg Tablet) 50 mg PO DAILY [facility]; Protocol Last Admin: 01/05/22 10:16 Dose: 50 mg Documented by: Mirtazapine (Mirtazapine 30 Mg Tablet) 30 mg PO BEDTIME [facility] Last Admin: 01/04/22 20:35 Dose: 30 mg Documented by: Omeprazole (Omeprazole 20 Mg Capsule.Dr) 20 mg PO DAILY@0630 [facility] Last Admin: 01/05/22 05:46 Dose: 20 mg Documented by: Perphenazine (Perphenazine 2 Mg Tablet) 2 mg PO TID [facility] Last Admin: 01/05/22 15:24 Dose: 2 mg Documented by: Quetiapine Fumarate (Quetiapine Fumarate 300 Mg Tablet) 300 mg PO BEDTIME [facility] Last Admin: 01/04/22 20:35 Dose: 300 mg Documented by: Trazodone HCl (Trazodone Hcl 50 Mg Tablet) 50 mg PO BEDTIME PRN PRN Reason: Insomnia Last Admin: 01/03/22 02:19 Dose: 50 mg Documented by: Allergies Allergies Allergy/AdvReac Type Severity Reaction Status Date / Time codeine Allergy Unknown Unknown Verified 12/22/21 15:45 fentanyl Allergy Unknown Unknown Verified 12/22/21 15:45 prochlorperazine Allergy Unknown Unknown Verified 12/22/21 15:45 [From Compazine] Sulfa (Sulfonamide Allergy Unknown Unknown Verified 12/22/21 15:45 Antibiotics) ziprasidone [From Geodon] Allergy Unknown Unknown Verified 12/22/21 15:45 Assessment & Plan Assessment & Plan (1) Borderline personality disorder: Status: Acute Code(s): F60.3 - Borderline personality disorder (2) MDD (major depressive disorder), recurrent, severe, with psychosis: Status: Acute Code(s): F33.3 - Major depressive disorder, recurrent, severe with psychotic symptoms Plan continue current medications CV, 1:1 for safety- do think pt may increase self harm to delay discharge, rather than active suicidality. Obtain collateral information. 01/01/2022: No changes to team's primary treatment plan 01/02- continue current medications. tentative d/c on 01/04/22. may need collateral info from daughter to assess level of risk as pt very superficial and not meaningfully engaging in treatment here on unit. 01/03- collateral information gathered from PCP Dr. 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 Dr. Lee has noticed persecutory delusions in last 2 years, pt moved from different motels due to persecutory delusions. Pt also with somatic complaints but medical work up did not reveal anything. PCP denies that pt has hx alcohol use disorder- as reported by pt. collateral information from sister Gail ([phone]) who reports in past year she has seen pt more paranoid, thinking someone is after her. She reports pt stayed with her for 2 weeks in 10/2021 and pt appeared paranoid, reporting that someone was in the attic Sister reports she has not seen her as suspicious and paranoia as in past year. Sister denies that pt has alcohol use disorder. Pt agrees to start perphenazine 2mg po TID- target persecutory delusions. 01/04 continue perphenazine, remeron. 01/05- continue current medications- may adjust dose of perphenazine. I spent minutes with the patient and/or on the patient floor today, greater than?50% of which was spent counseling/coordinating care.
[2022-01-05] MEDS: Mirtazapine 30 MG TABLET PO (20:31)
[2022-01-05] MEDS: QUEtiapine Fumarate 300 MG TABLET PO (20:31)
[2022-01-05] MEDS: Gabapentin 600 MG TABLET PO (20:31)
[2022-01-05 21:27] VITALS: BP 159/66; PULSE 98; RESP 17; TEMP 36; O2SAT 97
[2022-01-05] MEDS: hydrOXYzine HCL 25 MG TABLET PO (23:52)
[2022-01-05] MEDS: traZODone HCL 50 MG TABLET PO (23:52)
[2022-01-06] MEDS: Omeprazole 20 MG CAPSULE.DR PO (06:52)
[2022-01-06 08:00] VITALS: BP 135/64; PULSE 95; RESP 14; TEMP 36.4; O2SAT 97
[2022-01-06] MEDS: Metoprolol Tartrate 50 MG TABLET PO (08:56)
[2022-01-06] MEDS: Perphenazine 2 MG TABLET PO (08:56)
--- NOTE | 2022-01-06 11:21 | P.PNPSI_ITS ---
Subjective Subjective Date of Service: 01/06/22 Reason For Visit: psychosis Subjective Notes: Conditional Voluntary Interim History: Pt continues on one to one for safety. Pt reports feeling less anxious. She also reports feeling less depressed. She continues to report she can't return to apartment as is too big and reports she will find place when she leaves. Pt denies SI/HI. She reports some difficulty falling asleep- agrees to add melatonin. Per nursing, pt has been visible in unit, attends some groups. not participating in meaningful aftercare planning. Medication Compliance: Yes Side effects from medications: No Attending Groups: Intermittent Review of Systems Acute medical concerns: No Review of Systems Review of Systems unremarkable Yes all other systems are reviewed and are negative Constitutional: Denies weight gain and Denies weight loss Cardiovascular: Denies irregular heart rhythm and Denies dyspnea Respiratory: Denies dyspnea Gastrointestinal: Reports dyspepsia and Reports diarrhea Mental Status Exam Mental Status Exam Narrative: Appearance: casually groomed, fair hygiene in NAD Behavior:cooperative psychomotor:no agitation or retardation noted Speech:clear, normal rate/rhythm/volume, spontaneous Thought process:tangential Thought content:less depressed but not wanting to return home ? paranoia Mood: better Affect: congruent, calm, non labile SI:none HI:none VH/AH:none Delusions:? persecutory Insight/judgment:fair x 2. Memory/cog: alert, oriented x 3. grossly intact to conversational testing. Diagnostics Vital Signs (24Hr): Vital Signs - 24 hr 01/05/22 21:27 01/06/22 08:00 Temperature 96.8 F 97.5 F Pulse Rate 98 95 Respiratory Rate 17 14 Blood Pressure 159/66 H 135/64 Pulse Oximetry 97 97 BMI result Body Mass Index 28.9 Labs Results: 12/23/21 07:36 Medications Medications Current Medications Acetaminophen (Acetaminophen 325 Mg Tablet) 650 mg PO Q6H PRN PRN Reason: Headache/Pain Mild Scale (1-3) Last Admin: 01/04/22 05:30 Dose: 650 mg Documented by: Al Hydroxide/Mg Hydroxide (Magnesium Hydrox/Alum Hydrox 30 Ml Oral.Susp) 30 ml PO Q6H PRN PRN Reason: Heartburn/Nausea Gabapentin (Gabapentin 600 Mg Tablet) 600 mg PO BEDTIME [facility] Last Admin: 01/05/22 20:31 Dose: 600 mg Documented by: Hydroxyzine HCl (Hydroxyzine Hcl 25 Mg Tablet) 25 mg PO BEDTIME PRN PRN Reason: Anxiety Last Admin: 01/05/22 23:52 Dose: 25 mg Documented by: Loperamide HCl (Loperamide Hcl 2 Mg Capsule) 4 mg PO Q4H PRN PRN Reason: Diarrhea Last Admin: 12/29/21 13:04 Dose: 4 mg Documented by: Magnesium Hydroxide (Milk Of Magnesia 30 Ml Oral.Susp) 30 ml PO DAILY PRN PRN Reason: Constipation Metoprolol Tartrate (Metoprolol Tartrate 50 Mg Tablet) 50 mg PO DAILY [facility]; Protocol Last Admin: 01/06/22 08:56 Dose: 50 mg Documented by: Mirtazapine (Mirtazapine 30 Mg Tablet) 30 mg PO BEDTIME [facility] Last Admin: 01/05/22 20:31 Dose: 30 mg Documented by: Omeprazole (Omeprazole 20 Mg Capsule.Dr) 20 mg PO DAILY@0630 [facility] Last Admin: 01/06/22 06:52 Dose: 20 mg Documented by: Quetiapine Fumarate (Quetiapine Fumarate 300 Mg Tablet) 300 mg PO BEDTIME [facility] Last Admin: 01/05/22 20:31 Dose: 300 mg Documented by: Trazodone HCl (Trazodone Hcl 50 Mg Tablet) 50 mg PO BEDTIME PRN PRN Reason: Insomnia Last Admin: 01/05/22 23:52 Dose: 50 mg Documented by: Allergies Allergies Allergy/AdvReac Type Severity Reaction Status Date / Time codeine Allergy Unknown Unknown Verified 12/22/21 15:45 fentanyl Allergy Unknown Unknown Verified 12/22/21 15:45 prochlorperazine Allergy Unknown Unknown Verified 12/22/21 15:45 [From Compazine] Sulfa (Sulfonamide Allergy Unknown Unknown Verified 12/22/21 15:45 Antibiotics) ziprasidone [From Geodon] Allergy Unknown Unknown Verified 12/22/21 15:45 Assessment & Plan Assessment & Plan (1) Borderline personality disorder: Status: Acute Code(s): F60.3 - Borderline personality disorder (2) MDD (major depressive disorder), recurrent, severe, with psychosis: Status: Acute Code(s): F33.3 - Major depressive disorder, recurrent, severe with psychotic symptoms Plan continue current medications CV, 1:1 for safety- do think pt may increase self harm to delay discharge, rather than active suicidality. Obtain collateral information. 01/01/2022: No changes to team's primary treatment plan 01/02- continue current medications. tentative d/c on 01/04/22. may need collateral info from daughter to assess level of risk as pt very superficial and not meaningfully engaging in treatment here on unit. 01/03- collateral information gathered from PCP Dr. 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 Dr. Lee has noticed persecutory delusions in last 2 years, pt moved from different motels due to persecutory delusions. Pt also with somatic complaints but medical work up did not reveal anything. PCP denies that pt has hx alcohol use disorder- as reported by pt. collateral information from sister Gail ([phone]) who reports in past year she has seen pt more paranoid, thinking someone is after her. She reports pt stayed with her for 2 weeks in 10/2021 and pt appeared paranoid, reporting that someone was in the attic Sister reports she has not seen her as suspicious and paranoia as in past year. Sister denies that pt has alcohol use disorder. Pt agrees to start perphenazine 2mg po TID- target persecutory delusions. 01/04 continue perphenazine, remeron. 01/05- continue current medications- may adjust dose of perphenazine. 01/06- increase dose of perphenazine for paranoia- I spent minutes with the patient and/or on the patient floor today, greater than?50% of which was spent counseling/coordinating care. Reason for contiued inpatient stay Substantial Risk for: harm to self
[2022-01-06] MEDS: Perphenazine 4 MG TABLET PO ×2 (17:29→20:21)
[2022-01-06] MEDS: QUEtiapine Fumarate 300 MG TABLET PO (20:21)
[2022-01-06] MEDS: Gabapentin 600 MG TABLET PO (20:21)
[2022-01-06] MEDS: Mirtazapine 30 MG TABLET PO (20:21)
[2022-01-06] MEDS: traZODone HCL 50 MG TABLET PO (21:44)
[2022-01-06 21:53] VITALS: BP 129/59; PULSE 91; RESP 16; TEMP 36.4; O2SAT 98
[2022-01-07] MEDS: Omeprazole 20 MG CAPSULE.DR PO (05:51)
--- NOTE | 2022-01-07 17:37 | HO.PSYCHPN ---
Subjective Subjective Date of Service: 01/07/22 Reason For Visit: psychosis Interim History: Pt continues on one to one for safety. She denies wanting to hurt herself today. She says I realize I need to be here. I hurt myself because I didn't' want to be here Patient refused trilafon all day today. She continues paranoid. She also reports feeling less depressed and anxious. Pt denies SI/HI. She reports some difficulty falling asleep- agrees to add melatonin. Mental Status Exam Mental Status Exam Narrative: Appearance: casually groomed, fair hygiene in NAD Behavior:cooperative psychomotor:no agitation or retardation noted Speech:clear, normal rate/rhythm/volume, spontaneous Thought process:tangential Thought content:less depressed but not wanting to return home ? paranoia Mood: better Affect: congruent, calm, non labile SI:none HI:none VH/AH:none Delusions:? persecutory Insight/judgment:fair x 2. Memory/cog: alert, oriented x 3. grossly intact to conversational testing. Patient Appearance: Well Grooomed Level of Consciousness: Awake Patient Behavior: Cooperative Mood Description: Depressed Affect Description: Constricted Ability to Follow Directions: Good Speech Pattern: Clear Memory Description: Intact Diagnostics Vital Signs (24Hr): Vital Signs - 24 hr 01/06/22 21:53 Temperature 97.6 F Pulse Rate 91 Respiratory Rate 16 Blood Pressure 129/59 L Pulse Oximetry 98 BMI result Body Mass Index 28.9 Labs Results: 12/23/21 07:36 Medications Medications Current Medications Acetaminophen (Acetaminophen 325 Mg Tablet) 650 mg PO Q6H PRN PRN Reason: Headache/Pain Mild Scale (1-3) Last Admin: 01/04/22 05:30 Dose: 650 mg Documented by: Al Hydroxide/Mg Hydroxide (Magnesium Hydrox/Alum Hydrox 30 Ml Oral.Susp) 30 ml PO Q6H PRN PRN Reason: Heartburn/Nausea Gabapentin (Gabapentin 600 Mg Tablet) 600 mg PO BEDTIME [facility] Last Admin: 01/06/22 20:21 Dose: 600 mg Documented by: Hydroxyzine HCl (Hydroxyzine Hcl 25 Mg Tablet) 25 mg PO BEDTIME PRN PRN Reason: Anxiety Last Admin: 01/05/22 23:52 Dose: 25 mg Documented by: Loperamide HCl (Loperamide Hcl 2 Mg Capsule) 4 mg PO Q4H PRN PRN Reason: Diarrhea Last Admin: 12/29/21 13:04 Dose: 4 mg Documented by: Magnesium Hydroxide (Milk Of Magnesia 30 Ml Oral.Susp) 30 ml PO DAILY PRN PRN Reason: Constipation Metoprolol Tartrate (Metoprolol Tartrate 50 Mg Tablet) 50 mg PO DAILY [facility]; Protocol Last Admin: 01/07/22 11:11 Dose: Not Given Documented by: Mirtazapine (Mirtazapine 30 Mg Tablet) 30 mg PO BEDTIME [facility] Last Admin: 01/06/22 20:21 Dose: 30 mg Documented by: Omeprazole (Omeprazole 20 Mg Capsule.Dr) 20 mg PO DAILY@0630 [facility] Last Admin: 01/07/22 05:51 Dose: 20 mg Documented by: Perphenazine (Perphenazine 4 Mg Tablet) 4 mg PO TID [facility] Last Admin: 01/07/22 15:08 Dose: Not Given Documented by: Quetiapine Fumarate (Quetiapine Fumarate 300 Mg Tablet) 300 mg PO BEDTIME [facility] Last Admin: 01/06/22 20:21 Dose: 300 mg Documented by: Trazodone HCl (Trazodone Hcl 50 Mg Tablet) 50 mg PO BEDTIME PRN PRN Reason: Insomnia Last Admin: 01/06/22 21:44 Dose: 50 mg Documented by: Allergies Allergies Allergy/AdvReac Type Severity Reaction Status Date / Time codeine Allergy Unknown Unknown Verified 12/22/21 15:45 fentanyl Allergy Unknown Unknown Verified 12/22/21 15:45 prochlorperazine Allergy Unknown Unknown Verified 12/22/21 15:45 [From Compazine] Sulfa (Sulfonamide Allergy Unknown Unknown Verified 12/22/21 15:45 Antibiotics) ziprasidone [From Geodon] Allergy Unknown Unknown Verified 12/22/21 15:45 Assessment & Plan Assessment & Plan (1) Borderline personality disorder: Status: Acute Code(s): F60.3 - Borderline personality disorder (2) MDD (major depressive disorder), recurrent, severe, with psychosis: Status: Acute Code(s): F33.3 - Major depressive disorder, recurrent, severe with psychotic symptoms Plan continue current medications CV, 1:1 for safety- do think pt may increase self harm to delay discharge, rather than active suicidality. Obtain collateral information. 01/01/2022: No changes to team's primary treatment plan 01/02- continue current medications. tentative d/c on 01/04/22. may need collateral info from daughter to assess level of risk as pt very superficial and not meaningfully engaging in treatment here on unit. 01/03- collateral information gathered from PCP Dr. 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 Dr. Lee has noticed persecutory delusions in last 2 years, pt moved from different motels due to persecutory delusions. Pt also with somatic complaints but medical work up did not reveal anything. PCP denies that pt has hx alcohol use disorder- as reported by pt. collateral information from sister Gail ([phone]) who reports in past year she has seen pt more paranoid, thinking someone is after her. She reports pt stayed with her for 2 weeks in 10/2021 and pt appeared paranoid, reporting that someone was in the attic? Sister reports she has not seen her as suspicious and paranoia as in past year. Sister denies that pt has alcohol use disorder. Pt agrees to start perphenazine 2mg po TID- target persecutory delusions. 01/04 continue perphenazine, remeron.? 01/05- continue current medications- may adjust dose of perphenazine. 01/06- increase dose of perphenazine for paranoia- 01/07 Encourage medication compliance I spent minutes with the patient and/or on the patient floor today, greater than?50% of which was spent counseling/coordinating care. Reason for contiued inpatient stay Substantial Risk for: inability to function and rapid decompensation
[2022-01-07 20:41] VITALS: BP 139/61; PULSE 102; RESP 18; TEMP 36.6; O2SAT 97
[2022-01-08 08:00] VITALS: BP 135/68; PULSE 104; TEMP 36.1; O2SAT 97
--- NOTE | 2022-01-08 10:03 | HO.PSYCHPN ---
Subjective Subjective Date of Service: 01/08/22 Reason For Visit: psychosis Interim History: She denies wanting to hurt herself today. She complained of constipation and refused all suggested medications to help relieve her constipation. She seems paranoid. She was dismissive of this examiner. She has not been taking her Trilafon saying ?I did not notice any difference when I took it. ? She was saying that the Remeron helps her but does not want anything for mood stabilization. Again seems paranoid about any interventions. Her affect was somewhat irritable. Denies suicidal or homicidal ideation. Continues on one-to-one for safety. Review of Systems Review of Systems Yes all other systems are reviewed and are negative Constitutional: Denies weight gain and Denies weight loss Cardiovascular: Denies irregular heart rhythm and Denies dyspnea Respiratory: Denies dyspnea Gastrointestinal: Reports dyspepsia and Reports diarrhea Mental Status Exam Mental Status Exam Narrative: Appearance: casually groomed, fair hygiene in NAD Behavior:cooperative psychomotor:no agitation or retardation noted Speech:clear, normal rate/rhythm/volume, spontaneous Thought process:tangential Thought content:less depressed but not wanting to return home ? paranoia Mood: better Affect: Irritable SI:none HI:none VH/AH:none Delusions:? persecutory. Paranoid. Insight/judgment: Impaired. Memory/cog: alert, oriented x 3. grossly intact to conversational testing. Patient Appearance: Well Grooomed Patient Orientation: Person Level of Consciousness: Awake Patient Behavior: Cooperative Mood Description: Depressed Affect Description: Constricted Ability to Follow Directions: Good Speech Pattern: Clear Memory Description: Intact Diagnostics Vital Signs (24Hr): Vital Signs - 24 hr 01/07/22 20:41 Temperature 97.9 F Pulse Rate 102 H Respiratory Rate 18 Blood Pressure 139/61 Pulse Oximetry 97 BMI result Body Mass Index 28.9 Labs Results: 12/23/21 07:36 Medications Medications Current Medications Acetaminophen (Acetaminophen 325 Mg Tablet) 650 mg PO Q6H PRN PRN Reason: Headache/Pain Mild Scale (1-3) Last Admin: 01/04/22 05:30 Dose: 650 mg Documented by: Al Hydroxide/Mg Hydroxide (Magnesium Hydrox/Alum Hydrox 30 Ml Oral.Susp) 30 ml PO Q6H PRN PRN Reason: Heartburn/Nausea Gabapentin (Gabapentin 600 Mg Tablet) 600 mg PO BEDTIME [facility] Last Admin: 01/07/22 23:55 Dose: Not Given Documented by: Hydroxyzine HCl (Hydroxyzine Hcl 25 Mg Tablet) 25 mg PO BEDTIME PRN PRN Reason: Anxiety Last Admin: 01/05/22 23:52 Dose: 25 mg Documented by: Loperamide HCl (Loperamide Hcl 2 Mg Capsule) 4 mg PO Q4H PRN PRN Reason: Diarrhea Last Admin: 12/29/21 13:04 Dose: 4 mg Documented by: Magnesium Hydroxide (Milk Of Magnesia 30 Ml Oral.Susp) 30 ml PO DAILY PRN PRN Reason: Constipation Metoprolol Tartrate (Metoprolol Tartrate 50 Mg Tablet) 50 mg PO DAILY [facility]; Protocol Last Admin: 01/08/22 08:33 Dose: Not Given Documented by: Mirtazapine (Mirtazapine 30 Mg Tablet) 30 mg PO BEDTIME [facility] Last Admin: 01/07/22 23:56 Dose: Not Given Documented by: Omeprazole (Omeprazole 20 Mg Capsule.Dr) 20 mg PO DAILY@0630 [facility] Last Admin: 01/08/22 08:33 Dose: Not Given Documented by: Perphenazine (Perphenazine 4 Mg Tablet) 4 mg PO TID [facility] Last Admin: 01/08/22 08:33 Dose: Not Given Documented by: Quetiapine Fumarate (Quetiapine Fumarate 300 Mg Tablet) 300 mg PO BEDTIME [facility] Last Admin: 01/07/22 23:57 Dose: Not Given Documented by: Trazodone HCl (Trazodone Hcl 50 Mg Tablet) 50 mg PO BEDTIME PRN PRN Reason: Insomnia Last Admin: 01/06/22 21:44 Dose: 50 mg Documented by: Allergies Allergies Allergy/AdvReac Type Severity Reaction Status Date / Time codeine Allergy Unknown Unknown Verified 12/22/21 15:45 fentanyl Allergy Unknown Unknown Verified 12/22/21 15:45 prochlorperazine Allergy Unknown Unknown Verified 12/22/21 15:45 [From Compazine] Sulfa (Sulfonamide Allergy Unknown Unknown Verified 12/22/21 15:45 Antibiotics) ziprasidone [From Geodon] Allergy Unknown Unknown Verified 12/22/21 15:45 Assessment & Plan Assessment & Plan (1) Borderline personality disorder: Status: Acute Code(s): F60.3 - Borderline personality disorder (2) MDD (major depressive disorder), recurrent, severe, with psychosis: Status: Acute Code(s): F33.3 - Major depressive disorder, recurrent, severe with psychotic symptoms Plan continue current medications CV, 1:1 for safety- do think pt may increase self harm to delay discharge, rather than active suicidality. Obtain collateral information. 01/01/2022: No changes to team's primary treatment plan 01/02- continue current medications. tentative d/c on 01/04/22. may need collateral info from daughter to assess level of risk as pt very superficial and not meaningfully engaging in treatment here on unit. 01/03- collateral information gathered from PCP Dr. 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 Dr. Lee has noticed persecutory delusions in last 2 years, pt moved from different motels due to persecutory delusions. Pt also with somatic complaints but medical work up did not reveal anything. PCP denies that pt has hx alcohol use disorder- as reported by pt. collateral information from sister Gail ([phone]) who reports in past year she has seen pt more paranoid, thinking someone is after her. She reports pt stayed with her for 2 weeks in 10/2021 and pt appeared paranoid, reporting that someone was in the attic? Sister reports she has not seen her as suspicious and paranoia as in past year. Sister denies that pt has alcohol use disorder. Pt agrees to start perphenazine 2mg po TID- target persecutory delusions. 01/04 continue perphenazine, remeron.? 01/05- continue current medications- may adjust dose of perphenazine. 01/06- increase dose of perphenazine for paranoia- 01/07 Encourage medication compliance 01/08 continue to encourage medication adherence. Patient is lacking insight and appears more paranoid and irritable today. I spent minutes with the patient and/or on the patient floor today, greater than?50% of which was spent counseling/coordinating care. Reason for contiued inpatient stay Substantial Risk for: harm to self
[2022-01-08 18:00] VITALS: BP 131/59; PULSE 98; RESP 20; TEMP 36.4; O2SAT 96
[2022-01-08] MEDS: QUEtiapine Fumarate 300 MG TABLET PO (21:32)
[2022-01-08] MEDS: Mirtazapine 30 MG TABLET PO (21:32)
[2022-01-08] MEDS: Gabapentin 600 MG TABLET PO (21:33)
[2022-01-08] MEDS: Perphenazine 4 MG TABLET PO (21:33)
[2022-01-09 08:00] VITALS: BP 114/71; PULSE 102; RESP 1; TEMP 36.3; O2SAT 93
--- NOTE | 2022-01-09 08:20 | P.PNPSI_ITS ---
Subjective Subjective Date of Service: 01/09/22 Reason For Visit: psychosis Subjective Notes: Conditional Voluntary Interim History: The nursing staff reported the patient is very upset for being on one-to-one for safety. Over the weekend she refused medications but last night she took all her medications. On interview the patient denies suicidal ideation, she states that she does not want to go back to her apartment because it is too big . She was recently started on antipsychotics due to paranoia that apparently has worsened in the last months. So far no side effects. She states that she is safe now. Mental Status Exam Mental Status Exam Patient Appearance: Appropriate Patient Orientation: Person and Situation Level of Consciousness: Awake Patient Behavior: Cooperative Mood Description: Withdrawn Affect Description: Constricted Patient Cognition Impaired: No Ability to Follow Directions: Fair Speech Pattern: Clear Memory Description: Intact Hallucinations: None Delusions: Not Present Thought Process: Distracted and Evasive Thought Content: positive for [place], positive for Circumstantial and positive for Poverty of Content Judgement: Fair Diagnostics Vital Signs (24Hr): Vital Signs - 24 hr 01/08/22 18:00 Temperature 97.5 F Pulse Rate 98 Respiratory Rate 20 Blood Pressure 131/59 L Pulse Oximetry 96 BMI result Body Mass Index 28.9 Labs Results: 12/23/21 07:36 Medications Medications Current Medications Acetaminophen (Acetaminophen 325 Mg Tablet) 650 mg PO Q6H PRN PRN Reason: Headache/Pain Mild Scale (1-3) Last Admin: 01/04/22 05:30 Dose: 650 mg Documented by: Al Hydroxide/Mg Hydroxide (Magnesium Hydrox/Alum Hydrox 30 Ml Oral.Susp) 30 ml PO Q6H PRN PRN Reason: Heartburn/Nausea Gabapentin (Gabapentin 600 Mg Tablet) 600 mg PO BEDTIME FELIX Last Admin: 01/08/22 21:33 Dose: 600 mg Documented by: Hydroxyzine HCl (Hydroxyzine Hcl 25 Mg Tablet) 25 mg PO BEDTIME PRN PRN Reason: Anxiety Last Admin: 01/05/22 23:52 Dose: 25 mg Documented by: Loperamide HCl (Loperamide Hcl 2 Mg Capsule) 4 mg PO Q4H PRN PRN Reason: Diarrhea Last Admin: 12/29/21 13:04 Dose: 4 mg Documented by: Magnesium Hydroxide (Milk Of Magnesia 30 Ml Oral.Susp) 30 ml PO DAILY PRN PRN Reason: Constipation Metoprolol Tartrate (Metoprolol Tartrate 50 Mg Tablet) 50 mg PO DAILY [facility]; Protocol Last Admin: 01/08/22 08:33 Dose: Not Given Documented by: Mirtazapine (Mirtazapine 30 Mg Tablet) 30 mg PO BEDTIME [facility] Last Admin: 01/08/22 21:32 Dose: 30 mg Documented by: Omeprazole (Omeprazole 20 Mg [place].) 20 mg PO DAILY@0630 [facility] Last Admin: 01/09/22 05:42 Dose: Not Given Documented by: Perphenazine (Perphenazine 4 Mg Tablet) 4 mg PO TID [facility] Last Admin: 01/08/22 21:33 Dose: 4 mg Documented by: Quetiapine Fumarate (Quetiapine Fumarate 300 Mg Tablet) 300 mg PO BEDTIME [facility] Last Admin: 01/08/22 21:32 Dose: 300 mg Documented by: Trazodone HCl (Trazodone Hcl 50 Mg Tablet) 50 mg PO BEDTIME PRN PRN Reason: Insomnia Last Admin: 01/06/22 21:44 Dose: 50 mg Documented by: Allergies Allergies Allergy/AdvReac Type Severity Reaction Status Date / Time codeine Allergy Unknown Unknown Verified 12/22/21 15:45 fentanyl Allergy Unknown Unknown Verified 12/22/21 15:45 prochlorperazine Allergy Unknown Unknown Verified 12/22/21 15:45 [From Compazine] Sulfa (Sulfonamide Allergy Unknown Unknown Verified 12/22/21 15:45 Antibiotics) ziprasidone [From Geodon] Allergy Unknown Unknown Verified 12/22/21 15:45 Assessment & Plan Assessment & Plan (1) Borderline personality disorder: Status: Acute Code(s): F60.3 - Borderline personality disorder (2) MDD (major depressive disorder), recurrent, severe, with psychosis: Status: Acute Code(s): F33.3 - Major depressive disorder, recurrent, severe with psychotic symptoms Plan continue current medications CV, 1:1 for safety- do think pt may increase self harm to delay discharge, rather than active suicidality. Obtain collateral information. 01/01/2022: No changes to team's primary treatment plan 01/02- continue current medications. tentative d/c on 01/04/22. may need collateral info from daughter to assess level of risk as pt very superficial and not meaningfully engaging in treatment here on unit. 01/03- collateral information gathered from PCP Dr. 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 Dr. Lee has noticed persecutory delusions in last 2 years, pt moved from different motels due to persecutory delusions. Pt also with somatic complaints but medical work up did not reveal anything. PCP denies that pt has hx alcohol use disorder- as reported by pt. collateral information from sister Gail ([phone]) who reports in past year she has seen pt more paranoid, thinking someone is after her. She reports pt stayed with her for 2 weeks in 10/2021 and pt appeared paranoid, reporting that someone was in the attic? Sister reports she has not seen her as suspicious and paranoia as in past year. Sister denies that pt has alcohol use disorder. Pt agrees to start perphenazine 2mg po TID- target persecutory delusions. 01/04 continue perphenazine, remeron.? 01/05- continue current medications- may adjust dose of perphenazine. 01/06- increase dose of perphenazine for paranoia- 01/07 Encourage medication compliance 01/08 continue to encourage medication adherence. Patient is lacking insight and appears more paranoid and irritable today. On January 09, the patient reports that she is feeling depressed and she does not like the one-to-one. We discussed safety concerns and I spent ___20___ minutes with the patient and/or on the patient floor today, greater than?50% of which was spent counseling/coordinating care. Reason for contiued inpatient stay Substantial Risk for: inability to function, rapid decompensation and med/psych decompensation
[2022-01-09 18:00] VITALS: BP 127/58; PULSE 93; RESP 18; TEMP 36.9; O2SAT 98
[2022-01-10 06:00] VITALS: BP 122/76; PULSE 102; RESP 16; TEMP 36.2; O2SAT 98
[2022-01-10] MEDS: Omeprazole 20 MG CAPSULE.DR PO (06:40)
--- NOTE | 2022-01-10 08:02 | P.PNPSI_ITS ---
Subjective Subjective Date of Service: 01/10/22 Reason For Visit: psychosis Subjective Notes: Conditional Voluntary Interim History: The nursing staff reported the patient refused medications last morning, and she refused all scheduled and p.r.n. medications last night. The staff reported that she has been eating well and sleeping well the only medication she took last night was omeprazole. She slept 6 hours. On interview the patient reports that she feels safe. I consulted with nursing and start checking her compliance over the last 5 days. We discussed compliance and she agreed to take medications. Mental Status Exam Mental Status Exam Patient Appearance: Well Grooomed Patient Orientation: Person and Situation Level of Consciousness: Awake Patient Behavior: Cooperative Mood Description: Withdrawn Affect Description: Constricted Patient Cognition Impaired: No Ability to Follow Directions: Good Speech Pattern: Clear Hallucinations: None Delusions: Paranoid Ideation Thought Process: Distracted Thought Content: positive for [place] Judgement: Fair Diagnostics Vital Signs (24Hr): Vital Signs - 24 hr 01/09/22 18:00 Temperature 98.4 F Pulse Rate 93 Respiratory Rate 18 Blood Pressure 127/58 L Pulse Oximetry 98 BMI result Body Mass Index 28.9 Labs Results: 12/23/21 07:36 Medications Medications Current Medications Acetaminophen (Acetaminophen 325 Mg Tablet) 650 mg PO Q6H PRN PRN Reason: Headache/Pain Mild Scale (1-3) Last Admin: 01/04/22 05:30 Dose: 650 mg Documented by: Al Hydroxide/Mg Hydroxide (Magnesium Hydrox/Alum Hydrox 30 Ml Oral.Susp) 30 ml PO Q6H PRN PRN Reason: Heartburn/Nausea Gabapentin (Gabapentin 600 Mg Tablet) 600 mg PO BEDTIME FELIX Last Admin: 01/09/22 20:45 Dose: Not Given Documented by: Hydroxyzine HCl (Hydroxyzine Hcl 25 Mg Tablet) 25 mg PO BEDTIME PRN PRN Reason: Anxiety Last Admin: 01/05/22 23:52 Dose: 25 mg Documented by: Loperamide HCl (Loperamide Hcl 2 Mg Capsule) 4 mg PO Q4H PRN PRN Reason: Diarrhea Last Admin: 12/29/21 13:04 Dose: 4 mg Documented by: Magnesium Hydroxide (Milk Of Magnesia 30 Ml Oral.Susp) 30 ml PO DAILY PRN PRN Reason: Constipation Metoprolol Tartrate (Metoprolol Tartrate 50 Mg Tablet) 50 mg PO DAILY [facility]; Protocol Last Admin: 01/09/22 08:47 Dose: Not Given Documented by: Mirtazapine (Mirtazapine 30 Mg Tablet) 30 mg PO BEDTIME [facility] Last Admin: 01/09/22 20:45 Dose: Not Given Documented by: Omeprazole (Omeprazole 20 Mg Capsule.) 20 mg PO DAILY@0630 [facility] Last Admin: 01/10/22 06:40 Dose: 20 mg Documented by: Perphenazine (Perphenazine 4 Mg Tablet) 4 mg PO TID [facility] Last Admin: 01/09/22 20:47 Dose: Not Given Documented by: Quetiapine Fumarate (Quetiapine Fumarate 300 Mg Tablet) 300 mg PO BEDTIME [facility] Last Admin: 01/09/22 20:45 Dose: Not Given Documented by: Trazodone HCl (Trazodone Hcl 50 Mg Tablet) 50 mg PO BEDTIME PRN PRN Reason: Insomnia Last Admin: 01/06/22 21:44 Dose: 50 mg Documented by: Allergies Allergies Allergy/AdvReac Type Severity Reaction Status Date / Time codeine Allergy Unknown Unknown Verified 12/22/21 15:45 fentanyl Allergy Unknown Unknown Verified 12/22/21 15:45 prochlorperazine Allergy Unknown Unknown Verified 12/22/21 15:45 [From Compazine] Sulfa (Sulfonamide Allergy Unknown Unknown Verified 12/22/21 15:45 Antibiotics) ziprasidone [From Geodon] Allergy Unknown Unknown Verified 12/22/21 15:45 Assessment & Plan Assessment & Plan (1) Borderline personality disorder: Status: Acute Code(s): F60.3 - Borderline personality disorder (2) MDD (major depressive disorder), recurrent, severe, with psychosis: Status: Acute Code(s): F33.3 - Major depressive disorder, recurrent, severe with psychotic symptoms Plan continue current medications CV, 1:1 for safety- do think pt may increase self harm to delay discharge, rather than active suicidality. Obtain collateral information. 01/01/2022: No changes to team's primary treatment plan 01/02- continue current medications. tentative d/c on 01/04/22. may need collateral info from daughter to assess level of risk as pt very superficial and not meaningfully engaging in treatment here on unit. 01/03- collateral information gathered from PCP Dr. 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 Dr. Lee has noticed persecutory delusions in last 2 years, pt moved from different motels due to persecutory delusions. Pt also with somatic complaints but medical work up did n ot reveal anything. PCP denies that pt has hx alcohol use disorder- as reported by pt. collateral information from sister Gail ([phone]) who reports in past year she has seen pt more paranoid, thinking someone is after her. She reports pt stayed with her for 2 weeks in 10/2021 and pt appeared paranoid, reporting that someone was in the attic? Sister reports she has not seen her as suspicious and paranoia as in past year. Sister denies that pt has alcohol use disorder. Pt agrees to start perphenazine 2mg po TID- target persecutory delusions. 01/04 continue perphenazine, remeron.? 01/05- continue current medications- may adjust dose of perphenazine. 01/06- increase dose of perphenazine for paranoia- 01/07 Encourage medication compliance 01/08 continue to encourage medication adherence. Patient is lacking insight and appears more paranoid and irritable today. 01/09, the patient reports that she is feeling depressed and she does not like the one-to-one. 01/10 Compliance was discussed. I spent ___20___ minutes with the patient and/or on the patient floor today, greater than?50% of which was spent counseling/coordinating care. Reason for contiued inpatient stay Substantial Risk for: inability to function, rapid decompensation and med/psych decompensation
[2022-01-10] MEDS: Perphenazine 4 MG TABLET PO (15:52)
[2022-01-11] MEDS: Omeprazole 20 MG CAPSULE.DR PO (05:28)
[2022-01-11] MEDS: Magnesium Hydrox/Alum Hydrox 30 ML ORAL.SUSP PO (06:32)
--- NOTE | 2022-01-11 13:27 | P.DS_ITS ---
DS: Providers Provider Date of Service: 01/11/22 Date of admission: 12/22/21 14:57 Date of discharge: 01/11/22 Primary care physician: Alvin Lee MD Consults: 12/22/21 15:45 Consult to Hospitalist Routine Consulting Provider: Hospitalist Reason For Exam: routine 12/29/21 09:22 Consult to Hospitalist Routine Consulting Provider: Hospitalist Reason For Exam: purulent wound left wrist Attending physician on discharge: Kameron Gibbons DS: Diagnosis Discharge Diagnosis (1) Borderline personality disorder: Status: Acute (2) MDD (major depressive disorder), recurrent, severe, with psychosis: Status: Acute DS: Medications Discharge Medications Home Medications: Home Medications Medication Instructions Recorded Confirmed chlorthalidone 25 mg tablet 25 mg PO DAILY 12/23/21 12/23/21 clonazepam 0.5 mg tablet (Klonopin) 0.5 mg PO DAILY 12/23/21 gabapentin 600 mg tablet 600 mg PO BEDTIME 12/23/21 12/23/21 metoprolol succinate 50 mg 50 mg PO DAILY 12/23/21 12/23/21 tablet,extended release 24 hr omeprazole 20 mg capsule,delayed 12/23/21 release quetiapine 300 mg tablet (Seroquel) 300 mg PO BEDTIME 12/23/21 12/23/21 tranylcypromine 10 mg tablet 10 mg PO TID 12/23/21 ([place]) Mental Status Exam Mental Status Exam Patient Appearance: Well Grooomed Patient Orientation: Person, Place, Time and Situation Level of Consciousness: Awake and Appropriate Patient Behavior: Guarded and Passive Mood Description: Withdrawn Affect Description: Calm Patient Cognition Impaired: No Ability to Follow Directions: Good Speech Pattern: Clear Memory Description: Intact Hallucinations: None Delusions: Not Present Thought Process: Linear Thought Content: positive for Circumstantial Judgement: Fair DS: Summary Hospital Course Hospital Course: The patient was admitted from the emergency room of another hospital for suicidal ideation. Please see HPI of the admission note for further details. On admission, the patient was started with antidepressants and collateral information was gathered. According to her relatives, the patient has been paranoid for the last 2 years with increased paranoia. She was started on Trilafon. While she was in the unit she grabbed a tooth brush guarded, and self-harm in apparent suicidal attempt. The patient was placed on one-to-one for several days and eventually she did not like it. Even though the patient reported depressive symptoms her alleged mood did not correlated with the observed affect. Her affect was constricted but much brighter from Admission. She adamantly denies suicidal ideations. She reported that she has several psychosocial stressors such as conflicts with her family, problems with her housing and the employment. The patient refused to participate in treatment plan, she has refused most of the times her medications and there were no evidence of paranoia or any thought process disorder. Even though that she was prescribed Trilafon that she took it sporadically, there were no evidence of side effects. While she was in the unit, there was no evidence of psychosis. Since there were no safety concerns discharge planning was discussed. aftercare was arranged. The patient agreed on discharge plan Time spent discussing smoking cessation with patient: 3 to 10 minutes Status at Discharge Functional status at discharge: independent ambulation Overall status at discharge: patient is back to baseline Time Spent with Patient Time attestation: Total time spent providing and/or coordinating discharge services: Time spent: Less than 30 minutes Discharge Plan Discharge Patient Disposition: Home, Self-Care Discharge Diagnosis: borderline personality disorder Referrals: [facility] [Other] - 01/31/22 2:00 pm (Medication appointment scheduled for Monday, January 31, 2022 @ 2 PM with Nick Spencer via TELE[facility]ALTH. Placed on wait list for individual therapy will call you when clinician has been assigend.) Alvin Lee MD [Primary Care Provider] - 1 Week Discharge Medications: New gabapentin 600 mg Tablet 600 mg PO BEDTIME 30 Days Qty: 30 0RF quetiapine 300 mg Tablet 300 mg PO BEDTIME 30 Days Qty: 30 0RF mirtazapine 30 mg Tablet 30 mg PO BEDTIME 30 Days Qty: 30 0RF perphenazine 4 mg Tablet 4 mg PO TID 30 Days Qty: 90 0RF metoprolol tartrate 50 mg Tablet 50 mg PO DAILY 30 Days Qty: 30 0RF Protocol: Hold for SBP/HR < HOLD for SBP < : 90 HOLD for HR < : 60 omeprazole 20 mg Capsule,Delayed Release(Dr/Ec) 20 mg PO DAILY@0630 30 Days Qty: 30 0RF Continued chlorthalidone 25 mg Tablet 25 mg PO DAILY 30 Days Qty: 30 0RF Discontinued gabapentin 600 mg Tablet 600 mg PO BEDTIME 0RF quetiapine [Seroquel] 300 mg Tablet 300 mg PO BEDTIME 0RF metoprolol succinate 50 mg tablet 50 mg PO DAILY 0RF tranylcypromine [Parnate] 10 mg Tablet 10 mg PO TID 0RF clonazepam [Klonopin] 0.5 mg Tablet 0.5 mg PO DAILY 0RF omeprazole 20 mg Capsule,Delayed Release(Dr/Ec) 0RF Discharge Orders: Discharge Order (Routine); Ordered 01/11/22 Ordered By: Kameron Gibbons Diet: advance to usual diet Activity on Discharge: As tolerated Stand Alone Forms: Patient Portal Discharge page Care Plan Goals: care plan goals achieved in this unit Health Concerns: continue outpatient providers Plan of Treatment: continue medication management as an outpatient Assessment: elderly female with a history of depression, anxiety and parasuicidal ideation with cluster B traits admitted for a leg suicidal ideation. The patient does not have any thought process disorder, dysphoria or safety concerns, she was unable to participate in treatment plan and she requested discharge. Since there were no safety concerns discharge planning was started
--- NOTE | 2022-01-11 15:55 | PC.NURSE ---
Patient was well aware and ready for discharge. Paper work reviewed and next dose medications explained to patient . Patient verbalized understanding. Patient was accompanied with belongings to the front of the buildings per hospital policy.
== END 2022-01-11 16:50 | disposition home or self-care (01) | DRG 885 ==
PROVIDERS: Admitting Provider Psychiatry & Neurology Psychiatry; PCP Family Medicine; Visit Provider Social Worker
DX: F33.3 Major depressive disorder, recurrent, severe with psychotic symptoms (principal); R45.851 Suicidal ideations; F60.3 Borderline personality disorder; I10 Essential (primary) hypertension; Z87.891 Personal history of nicotine dependence; Z88.2 Allergy status to sulfonamides; Z88.5 Allergy status to narcotic agent; Z79.899 Other long term (current) drug therapy
CPT/HCPCS: 36415; 80053; 80061; 82607; 82746; 83036; 84443

== ENCOUNTER 2022-10-31 10:06 | Outpatient (RCR) | payer MEDICARE, SELFPAY | END 2022-11-16 08:47 | disposition home or self-care (01) | LOC: HO.PT 10:06 | PROVIDERS: PCP Internal Medicine Gastroenterology; Visit Provider Family Medicine | DX: R15.0 Incomplete defecation (principal); R15.9 Full incontinence of feces | CPT/HCPCS: 97112; 97161 ==